=== PATIENT | male | born 1950 | race Caucasian/White ===

== ENCOUNTER → 2017-07-17 11:10 | Outpatient (CLI) | payer OTHER, MEDICARE, SELFPAY ==
[2017-07-19 18:02] LABS: PSA Post Prostatectomy 2.46 ng/mL
[2017-07-19 22:43] LABS: Albumin 4.1 g/dL (3.6-5.1); Sex Hormone Binding Globulin 30 nmol/L (22-77); Testosterone, Bioavailable 104.8 ng/dL (110.0-575.0); Testosterone, Total 385 ng/dL (250-1100); Testosterone,Free 55.7 pg/mL (46.0-224.0)
== END ==
PROVIDERS: Family Provider Family Medicine; PCP Family Medicine; Visit Provider Nurse Practitioner
DX: C61 Malignant neoplasm of prostate (principal)
CPT/HCPCS: 36415; 82040; 84153; 84270; 84403

== ENCOUNTER → 2017-09-25 09:53 | Outpatient (CLI) | payer MEDICARE, OTHER, SELFPAY ==
[2017-09-28 18:02] LABS: PSA Post Prostatectomy 1.64 ng/mL
[2017-09-28 21:09] LABS: Albumin 4.2 g/dL (3.6-5.1); Sex Hormone Binding Globulin 37 nmol/L (22-77); Testosterone, Bioavailable 65.7 ng/dL (110.0-575.0); Testosterone, Total 291 ng/dL (250-1100); Testosterone,Free 34.1 pg/mL (46.0-224.0)
== END ==
PROVIDERS: Family Provider Family Medicine; PCP Family Medicine; Visit Provider Nurse Practitioner
DX: C61 Malignant neoplasm of prostate (principal)
CPT/HCPCS: 36415; 82040; 84153; 84270; 84403

== ENCOUNTER → 2017-10-23 10:52 | Outpatient (CLI) | payer MEDICARE, OTHER, SELFPAY ==
[2017-10-26 08:56] LABS: PSA Post Prostatectomy 1.76 ng/mL
[2017-10-26 22:07] LABS: Testosterone Free 39.5 pg/mL (35.0-155.0); Testosterone Total 317 ng/dL (250-1100)
== END ==
PROVIDERS: PCP Family Medicine; Visit Provider Nurse Practitioner
DX: C61 Malignant neoplasm of prostate (principal)
CPT/HCPCS: 36415; 84153; 84402; 84403

== ENCOUNTER → 2017-12-06 07:32 | Outpatient (CLI) | payer MEDICARE, OTHER, SELFPAY ==
--- NOTE | 2017-12-06 | DI.US.S_ITS ---
PROCEDURE: US PERIPH VENOUS LOW EXTREM RT INDICATIONS: RIGHT LOWER EXTREMITY WEAKNESS/TINGLING TECHNIQUE: Real-time imaging, as well as color and pulse Doppler interrogation, were performed of the lower extremity deep veins from the inguinal ligament to the popliteal fossa. COMPARISON: None. FINDINGS: The deep veins are normally compressible, and free of intraluminal thrombus. Color and pulse Doppler demonstrate normal phasic intraluminal flow. There is normal augmentation response to distal compression maneuver. IMPRESSION: No DVT found right lower extremity. Dictated by: Lloyd Larson M.D. on 12/06/2017 at 8:42 Approved by: Lloyd Larson M.D. on 12/06/2017 at 8:42
== END ==
PROVIDERS: PCP Family Medicine; Visit Provider Internal Medicine Hematology & Oncology
DX: M62.81 Muscle weakness (generalized) (principal); R20.0 Anesthesia of skin
CPT/HCPCS: 93971

== ENCOUNTER → 2017-12-23 12:12 | Outpatient (CLI) | payer MEDICARE, OTHER, SELFPAY ==
[2017-12-27 17:33] LABS: PSA Post Prostatectomy 1.75 ng/mL
[2017-12-27 18:01] LABS: Testosterone Free 57.7 pg/mL (35.0-155.0); Testosterone Total 332 ng/dL (250-1100)
== END ==
PROVIDERS: Family Provider Registered Nurse; Visit Provider Nurse Practitioner
DX: C61 Malignant neoplasm of prostate (principal)
CPT/HCPCS: 36415; 84153; 84402; 84403

== ENCOUNTER → 2018-01-24 10:31 | Outpatient (CLI) | payer MEDICARE, OTHER, SELFPAY ==
[2018-01-26 14:20] LABS: PSA Post Prostatectomy 1.96 ng/mL
[2018-01-26 14:54] LABS: Testosterone, Free 1.06 ng/dL
== END ==
PROVIDERS: Family Provider Registered Nurse; Visit Provider Nurse Practitioner
DX: C61 Malignant neoplasm of prostate (principal)
CPT/HCPCS: 36415; 84153; 84402

== ENCOUNTER → 2018-03-17 10:33 | Outpatient (CLI) | payer MEDICARE, OTHER, SELFPAY ==
[2018-03-23 13:31] LABS: Testosterone Total 333
[2018-03-23 13:33] LABS: Testosterone Free 36.7
[2018-03-25 16:42] LABS: PSA Post Prostatectomy 3.17 ng/mL
== END ==
PROVIDERS: Visit Provider Nurse Practitioner
DX: C61 Malignant neoplasm of prostate (principal)
CPT/HCPCS: 36415; 84153; 84402; 84403

== ENCOUNTER → 2018-04-19 12:22 | Outpatient (CLI) | payer MEDICARE, OTHER, SELFPAY ==
[2018-04-22 16:59] LABS: PSA Post Prostatectomy 2.17 ng/mL
[2018-04-23 18:09] LABS: Testosterone Free 64.4 pg/mL (35.0-155.0); Testosterone Total 626 ng/dL (250-1100)
== END ==
PROVIDERS: Family Provider Registered Nurse; PCP Family Medicine; Visit Provider Nurse Practitioner
CPT/HCPCS: 36415; 84153; 84402; 84403

== ENCOUNTER → 2019-02-11 11:49 | Outpatient (CLI) | payer MEDICARE, OTHER, SELFPAY ==
[2019-02-14 10:59] LABS: PSA Post Prostatectomy 0.25 ng/mL
[2019-02-15 14:37] LABS: Testosterone Free 42.8 pg/mL (35.0-155.0); Testosterone Total 380 ng/dL (250-1100)
== END ==
PROVIDERS: Family Provider Internal Medicine; PCP Internal Medicine
DX: C61 Malignant neoplasm of prostate (principal)
CPT/HCPCS: 36415; 84153; 84402; 84403

== ENCOUNTER → 2019-05-03 14:51 | Outpatient (CLI) | payer MEDICARE, OTHER, SELFPAY ==
[2019-05-03 18:00] LABS: Prostate Specific Antigen 0.502 ng/mL (0.10-4.00)
[2019-05-08 01:21] LABS: Testosterone Free 42.8 pg/mL (35.0-155.0); Testosterone Total 371 ng/dL (250-1100)
== END ==
PROVIDERS: Family Provider Internal Medicine; PCP Internal Medicine; Referring Provider Nurse Practitioner; Visit Provider Nurse Practitioner
DX: C61 Malignant neoplasm of prostate (principal)
CPT/HCPCS: 36415; 84153; 84402; 84403

== ENCOUNTER → 2019-06-03 10:21 | Outpatient (CLI) | payer MEDICARE, OTHER, SELFPAY ==
[2019-06-04 07:16] LABS: PSA Ultrasensitive 0.859 ng/mL (0.000-4.000)
[2019-06-09 05:49] LABS: Percent Free Testosterone 1.94 % (1.50-4.20); Testosterone Free 7.65 ng/dL (5.00-21.00); Testosterone Total 394.5 ng/dL (264.0-916.0)
== END ==
PROVIDERS: Family Provider Internal Medicine; PCP Internal Medicine; Referring Provider Nurse Practitioner; Visit Provider Nurse Practitioner
DX: C61 Malignant neoplasm of prostate (principal)
CPT/HCPCS: 36415; 84153; 84402; 84403

== ENCOUNTER → 2019-07-05 12:35 | Outpatient (CLI) | payer MEDICARE, OTHER, SELFPAY ==
[2019-07-10 13:48] LABS: Percent Free Testosterone 1.28 % (1.50-4.20); Testosterone Free 3.97 ng/dL (5.00-21.00); Testosterone Total 310.2 ng/dL (264.0-916.0)
== END ==
PROVIDERS: Family Provider Internal Medicine; PCP Internal Medicine; Referring Provider Nurse Practitioner; Visit Provider Nurse Practitioner
DX: C61 Malignant neoplasm of prostate (principal)
CPT/HCPCS: 36415; 84153; 84402; 84403

== ENCOUNTER → 2019-09-07 08:37 | Outpatient (CLI) | payer MEDICARE, OTHER, SELFPAY ==
[2019-09-12 08:12] LABS: Percent Free Testosterone 1.46 % (1.50-4.20); Testosterone Free 5.31 ng/dL (5.00-21.00); Testosterone Total 363.5 ng/dL (264.0-916.0)
== END ==
PROVIDERS: Family Provider Internal Medicine; PCP Internal Medicine; Referring Provider Nurse Practitioner; Visit Provider Nurse Practitioner
DX: C61 Malignant neoplasm of prostate (principal)
CPT/HCPCS: 36415; 84153; 84402; 84403

== ENCOUNTER → 2019-10-10 10:16 | Outpatient (CLI) | payer MEDICARE, OTHER, SELFPAY ==
[2019-10-15 11:36] LABS: Percent Free Testosterone 1.27 % (1.50-4.20); Testosterone Free 3.76 ng/dL (5.00-21.00)
== END ==
PROVIDERS: Family Provider Internal Medicine; PCP Internal Medicine; Referring Provider Nurse Practitioner; Visit Provider Nurse Practitioner
DX: C61 Malignant neoplasm of prostate (principal)
CPT/HCPCS: 36415; 84153; 84402; 84403

== ENCOUNTER → 2019-11-08 10:12 | Outpatient (CLI) | payer MEDICARE, OTHER, SELFPAY ==
[2019-11-12 14:10] LABS: Percent Free Testosterone 2.65 % (1.50-4.20); Testosterone Free 9.09 ng/dL (5.00-21.00); Testosterone Total 343.1 ng/dL (264.0-916.0)
== END ==
PROVIDERS: Nurse Practitioner; Family Provider Internal Medicine; PCP Internal Medicine; Referring Provider Internal Medicine; Visit Provider Internal Medicine
DX: C61 Malignant neoplasm of prostate (principal)
CPT/HCPCS: 36415; 84153; 84402; 84403

== ENCOUNTER → 2019-12-12 11:18 | Outpatient (CLI) | payer MEDICARE, OTHER, SELFPAY ==
[2019-12-14 14:07] LABS: Testosterone, Free 7.2 pg/mL (6.6-18.1)
== END ==
PROVIDERS: Family Provider Internal Medicine; PCP Internal Medicine; Referring Provider Nurse Practitioner; Visit Provider Nurse Practitioner
DX: C61 Malignant neoplasm of prostate (principal)
CPT/HCPCS: 36415; 84153; 84402

== ENCOUNTER → 2020-01-11 09:02 | Outpatient (CLI) | payer MEDICARE, OTHER, SELFPAY ==
[2020-01-16 08:58] LABS: Percent Free Testosterone 3.22 % (1.50-4.20); Testosterone Free 14.83 ng/dL (5.00-21.00); Testosterone Total 460.7 ng/dL (264.0-916.0)
== END ==
PROVIDERS: Family Provider Internal Medicine; PCP Internal Medicine; Referring Provider Internal Medicine Hematology & Oncology; Visit Provider Internal Medicine Hematology & Oncology
DX: C61 Malignant neoplasm of prostate (principal)
CPT/HCPCS: 36415; 84153; 84402; 84403

== ENCOUNTER → 2020-01-23 09:58 | Outpatient (CLI) | payer MEDICARE, OTHER, SELFPAY ==
[2020-01-23 11:15] LABS: Alanine Aminotransferase 18 IU/L (<50); Albumin 4.3 g/dL (3.5-5.0); Albumin Globulin Ratio 1.5 (1.0-2.8); Alkaline Phosphatase 46 U/L (38-126); Aspartate Aminotransferase 30 IU/L (17-59); BUN Creatinine Ratio 15.5 (6-22); Bilirubin Total 0.9 mg/dL (0.2-1.3); Blood Urea Nitrogen 13 mg/dL (9-20); Calcium 9.4 mg/dL (8.4-10.2); Carbon Dioxide 34 mmol/L (22-32); Chloride 96 mmol/L (98-107); Cholesterol 159 mg/dL (140-199); Estimated Glomerular Filt Rate > 60.0 mL/min (>60); Globulin 2.8 g/dL (1.7-4.1); Glucose 99 mg/dL (80-110); HDL Cholesterol 59 mg/dL (40-60); HEMOLYSIS 20 (0-50); LDL Cholesterol Calculated 85 mg/dL (<100); Sodium 131 mmol/L (137-145); Total Protein 7.1 g/dL (6.3-8.2); Triglycerides 73 mg/dL (35-150)
== END ==
PROVIDERS: Family Provider Internal Medicine; PCP Internal Medicine; Referring Provider Internal Medicine; Visit Provider Internal Medicine
DX: E78.2 Mixed hyperlipidemia (principal); I10 Essential (primary) hypertension
CPT/HCPCS: 36415; 80053; 80061

== ENCOUNTER → 2020-02-06 10:57 | Outpatient (CLI) | payer MEDICARE, OTHER, SELFPAY ==
[2020-02-12 05:07] LABS: Percent Free Testosterone 3.51 % (1.50-4.20); Testosterone Total 453.1 ng/dL (264.0-916.0)
== END ==
PROVIDERS: Family Provider Internal Medicine; PCP Internal Medicine; Referring Provider Internal Medicine Hematology & Oncology; Visit Provider Internal Medicine Hematology & Oncology
DX: C61 Malignant neoplasm of prostate (principal)
CPT/HCPCS: 36415; 84153; 84402; 84403

== ENCOUNTER → 2020-03-12 12:01 | Outpatient (CLI) | payer MEDICARE, OTHER, SELFPAY ==
[2020-03-22 05:11] LABS: Percent Free Testosterone 2.97 % (1.50-4.20); Testosterone Total 383.9 ng/dL (264.0-916.0)
== END ==
PROVIDERS: Family Provider Internal Medicine; PCP Internal Medicine; Referring Provider Internal Medicine Hematology & Oncology; Visit Provider Internal Medicine Hematology & Oncology
DX: C61 Malignant neoplasm of prostate (principal)
CPT/HCPCS: 36415; 84153; 84402; 84403

== ENCOUNTER → 2020-04-11 14:12 | Outpatient (CLI) | payer MEDICARE, OTHER, SELFPAY ==
[2020-04-17 08:09] LABS: Percent Free Testosterone 2.46 % (1.50-4.20); Testosterone Free 8.44 ng/dL (5.00-21.00); Testosterone Total 343.1 ng/dL (264.0-916.0)
== END ==
PROVIDERS: Family Provider Internal Medicine; PCP Internal Medicine; Referring Provider Internal Medicine Hematology & Oncology; Visit Provider Internal Medicine Hematology & Oncology
DX: C61 Malignant neoplasm of prostate (principal)
CPT/HCPCS: 36415; 84153; 84402; 84403

== ENCOUNTER → 2020-05-11 09:56 | Outpatient (CLI) | payer MEDICARE, OTHER, SELFPAY ==
[2020-05-19 15:36] LABS: Percent Free Testosterone 2.21 % (1.50-4.20); Testosterone Free 6.78 ng/dL (5.00-21.00); Testosterone Total 306.8 ng/dL (264.0-916.0)
== END ==
PROVIDERS: Family Provider Internal Medicine; PCP Internal Medicine; Referring Provider Internal Medicine Hematology & Oncology; Visit Provider Internal Medicine Hematology & Oncology
DX: C61 Malignant neoplasm of prostate (principal)
CPT/HCPCS: 36415; 84153; 84402; 84403

== ENCOUNTER → 2020-06-11 10:16 | Outpatient (CLI) | payer MEDICARE, OTHER, SELFPAY ==
[2020-06-14 08:40] LABS: Testosterone,Free 9.6 pg/mL (6.6-18.1)
[2020-06-17 13:09] LABS: Testosterone, Total 357.4
== END ==
PROVIDERS: Family Provider Internal Medicine; PCP Internal Medicine; Referring Provider Internal Medicine Hematology & Oncology; Visit Provider Internal Medicine Hematology & Oncology
DX: C61 Malignant neoplasm of prostate (principal)
CPT/HCPCS: 36415; 84153; 84402; 84403

== ENCOUNTER → 2020-07-09 08:53 | Outpatient (CLI) | payer MEDICARE, OTHER, SELFPAY ==
[2020-07-13 19:37] LABS: Percent Free Testosterone 3.18 % (1.50-4.20); Testosterone Free 13.83 ng/dL (5.00-21.00); Testosterone Total 434.8 ng/dL (264.0-916.0)
== END ==
PROVIDERS: Family Provider Internal Medicine; PCP Internal Medicine; Referring Provider Internal Medicine Hematology & Oncology; Visit Provider Internal Medicine Hematology & Oncology
DX: C61 Malignant neoplasm of prostate (principal)
CPT/HCPCS: 36415; 84153; 84402; 84403

== ENCOUNTER → 2020-08-13 07:14 | Outpatient (CLI) | payer MEDICARE, OTHER, SELFPAY ==
[2020-08-13 08:57] LABS: Alanine Aminotransferase 21 IU/L (<50); Albumin 3.9 g/dL (3.5-5.0); Albumin Globulin Ratio 1.6 (1.0-2.8); Alkaline Phosphatase 44 U/L (38-126); Aspartate Aminotransferase 33 IU/L (17-59); BUN Creatinine Ratio 23.5 (6-22); Bilirubin Total 0.6 mg/dL (0.2-1.3); Blood Urea Nitrogen 20 mg/dL (9-20); Calcium 9.3 mg/dL (8.4-10.2); Carbon Dioxide 30 mmol/L (22-32); Chloride 103 mmol/L (98-107); Cholesterol 150 mg/dL (140-199); Estimated Glomerular Filt Rate > 60.0 mL/min (>60); Globulin 2.4 g/dL (1.7-4.1); Glucose 95 mg/dL (80-110); HDL Cholesterol 56 mg/dL (40-60); HEMOLYSIS < 15 (0-50); LDL Cholesterol Calculated 78 mg/dL (<100); Potassium 3.4 mmol/L (3.4-5.1); Sodium 140 mmol/L (137-145); Total Protein 6.3 g/dL (6.3-8.2); Triglycerides 80 mg/dL (35-150)
[2020-08-17 12:13] LABS: Percent Free Testosterone 2.16 % (1.50-4.20); Testosterone Free 0.41 ng/dL (5.00-21.00); Testosterone Total 19.1 ng/dL (264.0-916.0)
== END ==
PROVIDERS: Family Provider Internal Medicine; PCP Internal Medicine; Referring Provider Internal Medicine Hematology & Oncology; Visit Provider Internal Medicine Hematology & Oncology
DX: C61 Malignant neoplasm of prostate (principal); I10 Essential (primary) hypertension; E78.2 Mixed hyperlipidemia
CPT/HCPCS: 36415; 80053; 80061; 84153; 84402; 84403

== ENCOUNTER → 2020-09-12 13:22 | Outpatient (CLI) | payer MEDICARE, OTHER, SELFPAY ==
[2020-09-19 08:10] LABS: Percent Free Testosterone 2.38 % (1.50-4.20); Testosterone Total 8.4 ng/dL (264.0-916.0)
== END ==
PROVIDERS: Family Provider Internal Medicine; PCP Internal Medicine; Referring Provider Internal Medicine Hematology & Oncology; Visit Provider Internal Medicine Hematology & Oncology
DX: C61 Malignant neoplasm of prostate (principal)
CPT/HCPCS: 36415; 84153; 84402; 84403

== ENCOUNTER → 2020-10-10 08:51 | Outpatient (CLI) | payer MEDICARE, OTHER, SELFPAY ==
[2020-10-17 18:18] LABS: Percent Free Testosterone 2.38 % (1.50-4.20); Testosterone Free 0.34 ng/dL (5.00-21.00); Testosterone Total 14.1 ng/dL (264.0-916.0)
== END ==
PROVIDERS: Family Provider Internal Medicine; PCP Internal Medicine; Referring Provider Internal Medicine Hematology & Oncology; Visit Provider Internal Medicine Hematology & Oncology
DX: C61 Malignant neoplasm of prostate (principal)
CPT/HCPCS: 36415; 84153; 84402; 84403

== ENCOUNTER → 2020-11-13 09:35 | Outpatient (CLI) | payer MEDICARE, OTHER, SELFPAY ==
[2020-11-19 16:23] LABS: Testosterone,Free 3.2 pg/mL (6.6-18.1)
== END ==
PROVIDERS: Family Provider Internal Medicine; PCP Internal Medicine; Referring Provider Internal Medicine Hematology & Oncology; Visit Provider Internal Medicine Hematology & Oncology
DX: C61 Malignant neoplasm of prostate (principal)
CPT/HCPCS: 36415; 84153; 84402; 84403

== ENCOUNTER → 2020-12-12 09:46 | Outpatient (CLI) | payer MEDICARE, OTHER, SELFPAY ==
[2020-12-21 13:35] LABS: Percent Free Testosterone 2.15 % (1.50-4.20)
== END ==
PROVIDERS: Family Provider Internal Medicine; PCP Internal Medicine; Referring Provider Internal Medicine Hematology & Oncology; Visit Provider Internal Medicine Hematology & Oncology
DX: C61 Malignant neoplasm of prostate (principal)
CPT/HCPCS: 36415; 84153; 84402; 84403

== ENCOUNTER → 2020-12-25 08:09 | Outpatient (CLI) | payer MEDICARE, OTHER, SELFPAY ==
[2020-12-25 09:42] LABS: Alanine Aminotransferase 21 IU/L (<50); Albumin 4.2 g/dL (3.5-5.0); Albumin Globulin Ratio 1.8 (1.0-2.8); Alkaline Phosphatase 47 U/L (38-126); Aspartate Aminotransferase 35 IU/L (17-59); BUN Creatinine Ratio 14.1 (6-22); Bilirubin Total 0.8 mg/dL (0.2-1.3); Blood Urea Nitrogen 12 mg/dL (9-20); Calcium 9.6 mg/dL (8.4-10.2); Carbon Dioxide 33 mmol/L (22-32); Chloride 97 mmol/L (98-107); Cholesterol 161 mg/dL (140-199); Estimated Glomerular Filt Rate > 60.0 mL/min (>60); Globulin 2.3 g/dL (1.7-4.1); Glucose 93 mg/dL (80-110); HDL Cholesterol 62 mg/dL (40-60); HEMOLYSIS < 15 (0-50); LDL Cholesterol Calculated 80 mg/dL (<100); Potassium 3.9 mmol/L (3.4-5.1); Sodium 135 mmol/L (137-145); Total Protein 6.5 g/dL (6.3-8.2); Triglycerides 96 mg/dL (35-150)
== END ==
PROVIDERS: Family Provider Internal Medicine; PCP Internal Medicine; Referring Provider Internal Medicine; Visit Provider Internal Medicine
DX: E78.2 Mixed hyperlipidemia (principal); I10 Essential (primary) hypertension
CPT/HCPCS: 36415; 80053; 80061

== ENCOUNTER → 2021-01-11 11:15 | Outpatient (CLI) | payer MEDICARE, OTHER, SELFPAY ==
[2021-01-20 16:15] LABS: Percent Free Testosterone 1.33 % (1.50-4.20)
== END ==
PROVIDERS: Family Provider Internal Medicine; PCP Internal Medicine; Referring Provider Internal Medicine Hematology & Oncology; Visit Provider Internal Medicine Hematology & Oncology
DX: C61 Malignant neoplasm of prostate (principal); E78.2 Mixed hyperlipidemia; I10 Essential (primary) hypertension
CPT/HCPCS: 36415; 84153; 84402; 84403

== ENCOUNTER → 2021-02-18 08:46 | Outpatient (CLI) | payer MEDICARE, OTHER, SELFPAY ==
[2021-02-18 10:11] LABS: Prostate Specific Antigen 3.03 ng/mL (0.10-4.00)
[2021-02-25 11:17] LABS: Percent Free Testosterone 2.05 % (1.50-4.20); Testosterone Free 0.23 ng/dL (5.00-21.00)
== END ==
PROVIDERS: Family Provider Internal Medicine; PCP Internal Medicine; Referring Provider Internal Medicine Hematology & Oncology; Visit Provider Internal Medicine Hematology & Oncology
DX: C61 Malignant neoplasm of prostate (principal)
CPT/HCPCS: 36415; 84153; 84402; 84403

== ENCOUNTER → 2021-03-22 10:01 | Outpatient (CLI) | payer MEDICARE, OTHER, SELFPAY ==
[2021-03-22 11:30] LABS: Prostate Specific Antigen 3.38 ng/mL (0.10-4.00)
[2021-03-28 14:17] LABS: Percent Free Testosterone 2.31 % (1.50-4.20); Testosterone Free 0.43 ng/dL (5.00-21.00); Testosterone Total 18.5 ng/dL (264.0-916.0)
== END ==
PROVIDERS: Family Provider Internal Medicine; PCP Internal Medicine; Referring Provider Internal Medicine Hematology & Oncology; Visit Provider Internal Medicine Hematology & Oncology
DX: C61 Malignant neoplasm of prostate (principal)
CPT/HCPCS: 36415; 84153; 84402; 84403

== ENCOUNTER → 2021-04-15 14:35 | Outpatient (CLI) | payer MEDICARE, OTHER, SELFPAY ==
[2021-04-15 17:44] LABS: Prostate Specific Antigen 3.12 ng/mL (0.10-4.00)
[2021-04-23 07:13] LABS: Percent Free Testosterone 1.75 % (1.50-4.20)
== END ==
PROVIDERS: Family Provider Internal Medicine; PCP Internal Medicine; Referring Provider Internal Medicine Hematology & Oncology; Visit Provider Internal Medicine Hematology & Oncology
DX: C61 Malignant neoplasm of prostate (principal)
CPT/HCPCS: 36415; 84153; 84402; 84403

== ENCOUNTER → 2021-06-24 09:02 | Outpatient (CLI) | payer MEDICARE, OTHER, SELFPAY ==
[2021-06-24 11:05] LABS: Prostate Specific Antigen 3.26 ng/mL (0.10-4.00)
[2021-06-24 12:02] LABS: Alanine Aminotransferase 20 IU/L (<50); Albumin 4.1 g/dL (3.5-5.0); Albumin Globulin Ratio 1.7 (1.0-2.8); Alkaline Phosphatase 44 U/L (38-126); Aspartate Aminotransferase 30 IU/L (17-59); BUN Creatinine Ratio 22.1 (6-22); Bilirubin Total 0.4 mg/dL (0.2-1.3); Blood Urea Nitrogen 17 mg/dL (9-20); Calcium 9.2 mg/dL (8.4-10.2); Carbon Dioxide 29 mmol/L (22-32); Chloride 104 mmol/L (98-107); Cholesterol 168 mg/dL (140-199); Estimated Glomerular Filt Rate > 60 mL/min (>60); Globulin 2.4 g/dL (1.7-4.1); Glucose 98 mg/dL (80-110); HDL Cholesterol 55 mg/dL (40-60); HEMOLYSIS < 15 (0-50); LDL Cholesterol Calculated 92 mg/dL (<100); Potassium 3.7 mmol/L (3.4-5.1); Sodium 141 mmol/L (137-145); Total Protein 6.5 g/dL (6.3-8.2); Triglycerides 107 mg/dL (35-150)
[2021-07-01 11:41] LABS: Percent Free Testosterone 1.33 % (1.50-4.20); Testosterone Free 0.14 ng/dL (5.00-21.00); Testosterone Total 10.4 ng/dL (264.0-916.0)
== END ==
PROVIDERS: Family Provider Internal Medicine; PCP Internal Medicine; Referring Provider Internal Medicine Hematology & Oncology; Visit Provider Internal Medicine Hematology & Oncology
DX: E78.2 Mixed hyperlipidemia (principal); C61 Malignant neoplasm of prostate
CPT/HCPCS: 36415; 80053; 80061; 84153; 84402; 84403

== ENCOUNTER → 2021-07-23 12:41 | Outpatient (CLI) | payer MEDICARE, OTHER, SELFPAY ==
[2021-07-29 09:24] LABS: Percent Free Testosterone 1.75 % (1.50-4.20); Testosterone Free 0.21 ng/dL (5.00-21.00); Testosterone Total 12.1 ng/dL (264.0-916.0)
== END ==
PROVIDERS: Family Provider Internal Medicine; PCP Internal Medicine; Referring Provider Internal Medicine Hematology & Oncology; Visit Provider Internal Medicine Hematology & Oncology
DX: C61 Malignant neoplasm of prostate (principal)
CPT/HCPCS: 36415; 84153; 84402; 84403

== ENCOUNTER → 2021-08-18 12:36 | Outpatient (CLI) | payer MEDICARE, OTHER, SELFPAY ==
[2021-08-25 01:28] LABS: Percent Free Testosterone 1.82 % (1.50-4.20); Testosterone Free 0.21 ng/dL (5.00-21.00); Testosterone Total 11.3 ng/dL (264.0-916.0)
== END ==
PROVIDERS: Family Provider Internal Medicine; PCP Internal Medicine; Referring Provider Internal Medicine Hematology & Oncology; Visit Provider Internal Medicine Hematology & Oncology
DX: C61 Malignant neoplasm of prostate (principal)
CPT/HCPCS: 36415; 84153; 84402; 84403

== ENCOUNTER → 2021-09-18 13:14 | Outpatient (CLI) | payer MEDICARE, OTHER, SELFPAY ==
[2021-09-18 14:44] LABS: Prostate Specific Antigen 4.74 ng/mL (0.10-4.00)
[2021-09-25 08:35] LABS: Percent Free Testosterone 1.65 % (1.50-4.20); Testosterone Free 0.26 ng/dL (5.00-21.00); Testosterone Total 15.5 ng/dL (264.0-916.0)
== END ==
PROVIDERS: Family Provider Internal Medicine; PCP Internal Medicine; Referring Provider Internal Medicine Hematology & Oncology; Visit Provider Internal Medicine Hematology & Oncology
DX: C61 Malignant neoplasm of prostate (principal)
CPT/HCPCS: 36415; 84153; 84402; 84403

== ENCOUNTER → 2021-10-23 08:51 | Outpatient (CLI) | payer MEDICARE, OTHER, SELFPAY ==
[2021-10-23 12:19] LABS: Prostate Specific Antigen 4.89 ng/mL (0.10-4.00)
[2021-11-02 19:17] LABS: Percent Free Testosterone 2.69 % (1.50-4.20); Testosterone Free 0.58 ng/dL (5.00-21.00); Testosterone Total 21.5 ng/dL (264.0-916.0)
== END ==
PROVIDERS: Family Provider Internal Medicine; PCP Internal Medicine; Referring Provider Internal Medicine Hematology & Oncology; Visit Provider Internal Medicine Hematology & Oncology
DX: C61 Malignant neoplasm of prostate (principal)
CPT/HCPCS: 36415; 84153; 84402; 84403

== ENCOUNTER → 2021-11-25 11:35 | Outpatient (CLI) | payer MEDICARE, OTHER, SELFPAY ==
[2021-11-25 13:23] LABS: Prostate Specific Antigen 6.71 ng/mL (0.10-4.00)
[2021-12-07 18:21] LABS: Percent Free Testosterone 1.89 % (1.50-4.20)
== END ==
PROVIDERS: Family Provider Internal Medicine; PCP Internal Medicine; Referring Provider Internal Medicine Hematology & Oncology; Visit Provider Internal Medicine Hematology & Oncology
DX: C61 Malignant neoplasm of prostate (principal)
CPT/HCPCS: 36415; 84153; 84402; 84403

== ENCOUNTER → 2021-12-24 09:10 | Outpatient (CLI) | payer MEDICARE, OTHER, SELFPAY ==
[2021-12-24 10:07] LABS: Alanine Aminotransferase 22 IU/L (<50); Albumin 4.3 g/dL (3.5-5.0); Albumin Globulin Ratio 1.6 (1.0-2.8); Alkaline Phosphatase 52 U/L (38-126); Aspartate Aminotransferase 28 IU/L (17-59); BUN Creatinine Ratio 20.2 (6-22); Bilirubin Total 0.8 mg/dL (0.2-1.3); Blood Urea Nitrogen 18 mg/dL (9-20); Calcium 9.3 mg/dL (8.4-10.2); Carbon Dioxide 31 mmol/L (22-32); Chloride 100 mmol/L (98-107); Cholesterol 181 mg/dL (140-199); Estimated Glomerular Filt Rate > 60 mL/min (>60); Globulin 2.7 g/dL (1.7-4.1); Glucose 96 mg/dL (80-110); HDL Cholesterol 59 mg/dL (40-60); HEMOLYSIS < 15 (0-50); LDL Cholesterol Calculated 95 mg/dL (<100); Potassium 3.9 mmol/L (3.4-5.1); Sodium 137 mmol/L (137-145); Triglycerides 134 mg/dL (35-150)
[2021-12-24 10:23] LABS: Prostate Specific Antigen 6.69 ng/mL (0.10-4.00)
[2021-12-29 06:43] LABS: Percent Free Testosterone 2.33 % (1.50-4.20); Testosterone Free 0.42 ng/dL (5.00-21.00); Testosterone Total 18.1 ng/dL (264.0-916.0)
== END ==
PROVIDERS: Family Provider Internal Medicine; PCP Internal Medicine; Referring Provider Internal Medicine Hematology & Oncology; Visit Provider Internal Medicine Hematology & Oncology
DX: E78.2 Mixed hyperlipidemia (principal); C61 Malignant neoplasm of prostate; I10 Essential (primary) hypertension
CPT/HCPCS: 36415; 80053; 80061; 84153; 84402; 84403

== ENCOUNTER → 2022-01-20 14:04 | Outpatient (CLI) | payer MEDICARE, OTHER, SELFPAY ==
[2022-01-20 15:42] LABS: Prostate Specific Antigen 7.88 ng/mL (0.10-4.00)
[2022-01-31 13:39] LABS: Percent Free Testosterone 1.86 % (1.50-4.20); Testosterone Free 0.28 ng/dL (5.00-21.00)
== END ==
PROVIDERS: Family Provider Internal Medicine; PCP Internal Medicine; Referring Provider Internal Medicine Hematology & Oncology; Visit Provider Internal Medicine Hematology & Oncology
DX: C61 Malignant neoplasm of prostate (principal)
CPT/HCPCS: 36415; 84153; 84402; 84403

== ENCOUNTER → 2022-02-23 11:45 | Outpatient (CLI) | payer MEDICARE, OTHER, SELFPAY | PROVIDERS: Family Provider Internal Medicine; PCP Internal Medicine; Referring Provider Internal Medicine Hematology & Oncology; Visit Provider Internal Medicine Hematology & Oncology | DX: C61 Malignant neoplasm of prostate (principal) | CPT/HCPCS: 36415; 84153; 84402; 84403 ==

== ENCOUNTER → 2022-03-24 14:48 | Outpatient (CLI) | payer MEDICARE, OTHER, SELFPAY ==
[2022-03-24 15:47] LABS: Prostate Specific Antigen 7.73 ng/mL (0.10-4.00)
[2022-03-31 22:48] LABS: Percent Free Testosterone 1.76 % (1.50-4.20); Testosterone Free 0.15 ng/dL (5.00-21.00); Testosterone Total 8.7 ng/dL (264.0-916.0)
== END ==
PROVIDERS: Family Provider Internal Medicine; PCP Internal Medicine; Referring Provider Internal Medicine Hematology & Oncology; Visit Provider Internal Medicine Hematology & Oncology
DX: C61 Malignant neoplasm of prostate (principal)
CPT/HCPCS: 36415; 84153; 84402; 84403

== ENCOUNTER → 2022-04-22 12:38 | Outpatient (CLI) | payer MEDICARE, OTHER, SELFPAY ==
[2022-04-22 14:46] LABS: Prostate Specific Antigen 8.05 ng/mL (0.10-4.00)
[2022-05-03 15:36] LABS: Percent Free Testosterone 1.32 % (1.50-4.20); Testosterone Free 0.02 ng/dL (5.00-21.00); Testosterone Total 1.2 ng/dL (264.0-916.0)
== END ==
PROVIDERS: Family Provider Internal Medicine; PCP Internal Medicine; Referring Provider Internal Medicine Hematology & Oncology; Visit Provider Internal Medicine Hematology & Oncology
DX: C61 Malignant neoplasm of prostate (principal)
CPT/HCPCS: 36415; 84153; 84402; 84403

== ENCOUNTER → 2022-05-01 13:23 | Outpatient (CLI) | payer MEDICARE, OTHER, SELFPAY ==
[2022-05-01 14:52] LABS: Alanine Aminotransferase 22 IU/L (<50); Albumin 4.2 g/dL (3.5-5.0); Albumin Globulin Ratio 1.8 (1.0-2.8); Alkaline Phosphatase 51 U/L (38-126); Aspartate Aminotransferase 27 IU/L (17-59); BUN Creatinine Ratio 19.7 (6-22); Bilirubin Total 0.6 mg/dL (0.2-1.3); Blood Urea Nitrogen 15 mg/dL (9-20); Calcium 8.9 mg/dL (8.4-10.2); Carbon Dioxide 30 mmol/L (22-32); Chloride 97 mmol/L (98-107); Estimated Glomerular Filt Rate > 60 mL/min (>60); Globulin 2.3 g/dL (1.7-4.1); Glucose 91 mg/dL (80-110); HEMOLYSIS < 15 (0-50); Potassium 3.7 mmol/L (3.4-5.1); Sodium 134 mmol/L (137-145); Total Protein 6.5 g/dL (6.3-8.2)
== END ==
PROVIDERS: Family Provider Internal Medicine; PCP Internal Medicine; Referring Provider Internal Medicine Hematology & Oncology; Visit Provider Internal Medicine Hematology & Oncology
DX: C61 Malignant neoplasm of prostate (principal)
CPT/HCPCS: 36415; 80053

== ENCOUNTER → 2022-05-15 08:28 | Outpatient (CLI) | payer MEDICARE, OTHER, SELFPAY ==
[2022-05-15 09:19] LABS: Add Manual Diff / Slide Review NO; Basophils Absolute Auto 0 /uL (0-100); Basophils Percent Auto 0.5 % (0-2); Eosinophils Absolute Auto 100 /uL (0-450); Eosinophils Percent Auto 1.2 % (2-4); Hematocrit 36.9 % (41-53); Hemoglobin 12.9 g/dL (13.5-17.5); Lymphocytes Absolute Auto 3900 /uL (1100-4500); Lymphocytes Percent Auto 46.1 % (25-40); Mean Corpuscular Hemoglobin 33.5 PG (26-34); Mean Corpuscular Volume 95.6 fL (80-100); Monocytes Absolute Auto 700 /uL (0-900); Monocytes Percent Auto 8.1 % (3-14); Neutrophils Absolute Auto 3800 /uL (1500-7000); Neutrophils Percent Auto 44.1 % (50-75); Platelet Count 178 X10^3/uL (150-400); Red Blood Cell Count 3.86 X10^6/uL (4.5-5.9); Red Cell Distribution Width 13.4 % (11.6-14.8); White Blood Cell Count 8.5 X10^3/uL (4.5-11.0)
[2022-05-15 09:39] LABS: Alanine Aminotransferase 21 IU/L (<50); Albumin Globulin Ratio 1.6 (1.0-2.8); Alkaline Phosphatase 50 U/L (38-126); Aspartate Aminotransferase 25 IU/L (17-59); BUN Creatinine Ratio 17.3 (6-22); Bilirubin Total 0.6 mg/dL (0.2-1.3); Blood Urea Nitrogen 14 mg/dL (9-20); Carbon Dioxide 36 mmol/L (22-32); Chloride 96 mmol/L (98-107); Estimated Glomerular Filt Rate > 60 mL/min (>60); Globulin 2.5 g/dL (1.7-4.1); Glucose 95 mg/dL (80-110); HEMOLYSIS < 15 (0-50); Potassium 4.2 mmol/L (3.4-5.1); Sodium 137 mmol/L (137-145); Total Protein 6.5 g/dL (6.3-8.2)
[2022-05-15 10:03] LABS: Prostate Specific Antigen 5.54 ng/mL (0.10-4.00)
== END ==
PROVIDERS: Family Provider Internal Medicine; PCP Internal Medicine; Referring Provider Internal Medicine Hematology & Oncology; Visit Provider Internal Medicine Hematology & Oncology
DX: C61 Malignant neoplasm of prostate (principal)
CPT/HCPCS: 36415; 80053; 84153; 85025

== ENCOUNTER → 2022-05-29 13:48 | Outpatient (CLI) | payer MEDICARE, OTHER, SELFPAY ==
[2022-05-29 15:57] LABS: Alanine Aminotransferase 23 IU/L (<50); Albumin 4.3 g/dL (3.5-5.0); Albumin Globulin Ratio 1.5 (1.0-2.8); Alkaline Phosphatase 49 U/L (38-126); Aspartate Aminotransferase 26 IU/L (17-59); BUN Creatinine Ratio 23.2 (6-22); Bilirubin Total 0.5 mg/dL (0.2-1.3); Blood Urea Nitrogen 22 mg/dL (9-20); Calcium 9.3 mg/dL (8.4-10.2); Carbon Dioxide 35 mmol/L (22-32); Chloride 94 mmol/L (98-107); Estimated Glomerular Filt Rate > 60 mL/min (>60); Globulin 2.9 g/dL (1.7-4.1); Glucose 117 mg/dL (80-110); HEMOLYSIS < 15 (0-50); Potassium 3.5 mmol/L (3.4-5.1); Sodium 137 mmol/L (137-145); Total Protein 7.2 g/dL (6.3-8.2)
== END ==
PROVIDERS: Family Provider Internal Medicine; PCP Internal Medicine; Referring Provider Internal Medicine Hematology & Oncology; Visit Provider Internal Medicine Hematology & Oncology
DX: C61 Malignant neoplasm of prostate (principal)
CPT/HCPCS: 36415; 80053

== ENCOUNTER → 2022-06-12 13:50 | Outpatient (CLI) | payer MEDICARE, OTHER, SELFPAY ==
[2022-06-12 14:42] LABS: Alanine Aminotransferase 26 IU/L (<50); Albumin Globulin Ratio 1.5 (1.0-2.8); Alkaline Phosphatase 44 U/L (38-126); Aspartate Aminotransferase 26 IU/L (17-59); BUN Creatinine Ratio 22.1 (6-22); Bilirubin Total 0.5 mg/dL (0.2-1.3); Blood Urea Nitrogen 17 mg/dL (9-20); Calcium 9.2 mg/dL (8.4-10.2); Carbon Dioxide 33 mmol/L (22-32); Chloride 92 mmol/L (98-107); Estimated Glomerular Filt Rate > 60 mL/min (>60); Globulin 2.6 g/dL (1.7-4.1); Glucose 107 mg/dL (80-110); HEMOLYSIS < 15 (0-50); Potassium 3.4 mmol/L (3.4-5.1); Sodium 132 mmol/L (137-145); Total Protein 6.6 g/dL (6.3-8.2)
== END ==
PROVIDERS: Family Provider Internal Medicine; PCP Internal Medicine; Referring Provider Internal Medicine Hematology & Oncology; Visit Provider Internal Medicine Hematology & Oncology
DX: C61 Malignant neoplasm of prostate (principal)
CPT/HCPCS: 36415; 80053

== ENCOUNTER → 2022-06-24 13:04 | Outpatient (CLI) | payer MEDICARE, OTHER, SELFPAY ==
[2022-06-24 14:47] LABS: Alanine Aminotransferase 28 IU/L (<50); Albumin 4.2 g/dL (3.5-5.0); Albumin Globulin Ratio 1.6 (1.0-2.8); Alkaline Phosphatase 53 U/L (38-126); Aspartate Aminotransferase 29 IU/L (17-59); BUN Creatinine Ratio 22.1 (6-22); Bilirubin Total 0.7 mg/dL (0.2-1.3); Blood Urea Nitrogen 17 mg/dL (9-20); Calcium 9.4 mg/dL (8.4-10.2); Carbon Dioxide 31 mmol/L (22-32); Chloride 94 mmol/L (98-107); Estimated Glomerular Filt Rate > 60 mL/min (>60); Globulin 2.6 g/dL (1.7-4.1); Glucose 101 mg/dL (80-110); HEMOLYSIS < 15 (0-50); Potassium 3.3 mmol/L (3.4-5.1); Sodium 133 mmol/L (137-145); Total Protein 6.8 g/dL (6.3-8.2)
[2022-06-24 15:12] LABS: Prostate Specific Antigen 2.54 ng/mL (0.10-4.00)
[2022-07-02 09:05] LABS: Percent Free Testosterone 1.06 % (1.50-4.20); Testosterone Free <.03 ng/dL (5.00-21.00); Testosterone Total <2.5 ng/dL (264.0-916.0)
== END ==
PROVIDERS: Family Provider Internal Medicine; PCP Internal Medicine; Referring Provider Internal Medicine Hematology & Oncology; Visit Provider Internal Medicine Hematology & Oncology
DX: C61 Malignant neoplasm of prostate (principal)
CPT/HCPCS: 36415; 80053; 84153; 84402; 84403

== ENCOUNTER → 2022-06-30 09:57 | Outpatient (CLI) | payer MEDICARE, OTHER, SELFPAY ==
[2022-06-30 11:51] LABS: Alanine Aminotransferase 24 IU/L (<50); Alkaline Phosphatase 49 U/L (38-126); Aspartate Aminotransferase 25 IU/L (17-59); BUN Creatinine Ratio 18.7 (6-22); Blood Urea Nitrogen 17 mg/dL (9-20); Calcium 9.2 mg/dL (8.4-10.2); Carbon Dioxide 31 mmol/L (22-32); Chloride 99 mmol/L (98-107); Cholesterol 167 mg/dL (140-199); Estimated Glomerular Filt Rate > 60 mL/min (>60); Glucose 85 mg/dL (80-110); HDL Cholesterol 63 mg/dL (40-60); HEMOLYSIS < 15 (0-50); LDL Cholesterol Calculated 77 mg/dL (<100); Potassium 3.4 mmol/L (3.4-5.1); Sodium 135 mmol/L (137-145); Triglycerides 134 mg/dL (35-150)
== END ==
PROVIDERS: Family Provider Internal Medicine; PCP Internal Medicine; Referring Provider Internal Medicine; Visit Provider Internal Medicine
DX: E78.2 Mixed hyperlipidemia (principal); I10 Essential (primary) hypertension
CPT/HCPCS: 36415; 80053; 80061

== ENCOUNTER → 2022-07-10 13:31 | Outpatient (CLI) | payer MEDICARE, OTHER, SELFPAY ==
[2022-07-10 14:54] LABS: Alanine Aminotransferase 25 IU/L (<50); Albumin 4.1 g/dL (3.5-5.0); Albumin Globulin Ratio 1.7 (1.0-2.8); Alkaline Phosphatase 48 U/L (38-126); Aspartate Aminotransferase 29 IU/L (17-59); BUN Creatinine Ratio 20.6 (6-22); Bilirubin Total 0.6 mg/dL (0.2-1.3); Blood Urea Nitrogen 20 mg/dL (9-20); Calcium 9.3 mg/dL (8.4-10.2); Carbon Dioxide 28 mmol/L (22-32); Chloride 100 mmol/L (98-107); Estimated Glomerular Filt Rate > 60 mL/min (>60); Globulin 2.4 g/dL (1.7-4.1); Glucose 102 mg/dL (80-110); HEMOLYSIS < 15 (0-50); Potassium 3.5 mmol/L (3.4-5.1); Sodium 136 mmol/L (137-145); Total Protein 6.5 g/dL (6.3-8.2)
== END ==
PROVIDERS: Family Provider Internal Medicine; PCP Internal Medicine; Referring Provider Internal Medicine Hematology & Oncology; Visit Provider Internal Medicine Hematology & Oncology
DX: C61 Malignant neoplasm of prostate (principal)
CPT/HCPCS: 36415; 80053

== ENCOUNTER → 2022-07-24 13:41 | Outpatient (CLI) | payer MEDICARE, OTHER, SELFPAY ==
[2022-07-24 14:45] LABS: HEMOLYSIS < 15 (0-50)
[2022-07-24 14:54] LABS: Alanine Aminotransferase 28 IU/L (<50); Albumin Globulin Ratio 1.7 (1.0-2.8); Alkaline Phosphatase 49 U/L (38-126); Aspartate Aminotransferase 30 IU/L (17-59); Bilirubin Total 0.5 mg/dL (0.2-1.3); Blood Urea Nitrogen 16 mg/dL (9-20); Carbon Dioxide 33 mmol/L (22-32); Chloride 96 mmol/L (98-107); Estimated Glomerular Filt Rate > 60 mL/min (>60); Globulin 2.3 g/dL (1.7-4.1); Glucose 127 mg/dL (80-110); Potassium 3.8 mmol/L (3.4-5.1); Sodium 133 mmol/L (137-145); Total Protein 6.3 g/dL (6.3-8.2)
[2022-07-24 15:25] LABS: Prostate Specific Antigen 1.52 ng/mL (0.10-4.00)
[2022-07-31 07:19] LABS: Percent Free Testosterone 1.32 % (1.50-4.20); Testosterone Free <.03 ng/dL (5.00-21.00); Testosterone Total <2.5 ng/dL (264.0-916.0)
== END ==
PROVIDERS: Family Provider Internal Medicine; PCP Internal Medicine; Referring Provider Internal Medicine Hematology & Oncology; Visit Provider Internal Medicine Hematology & Oncology
DX: C61 Malignant neoplasm of prostate (principal)
CPT/HCPCS: 36415; 80053; 84153; 84402; 84403

== ENCOUNTER → 2022-08-21 15:22 | Outpatient (CLI) | payer MEDICARE, OTHER, SELFPAY ==
[2022-08-21 16:18] LABS: Alanine Aminotransferase 23 IU/L (<50); Albumin 4.3 g/dL (3.5-5.0); Albumin Globulin Ratio 1.7 (1.0-2.8); Alkaline Phosphatase 55 U/L (38-126); Aspartate Aminotransferase 26 IU/L (17-59); BUN Creatinine Ratio 26.2 (6-22); Bilirubin Total 0.6 mg/dL (0.2-1.3); Blood Urea Nitrogen 22 mg/dL (9-20); Calcium 9.8 mg/dL (8.4-10.2); Carbon Dioxide 33 mmol/L (22-32); Chloride 99 mmol/L (98-107); Estimated Glomerular Filt Rate > 60 mL/min (>60); Globulin 2.5 g/dL (1.7-4.1); Glucose 116 mg/dL (80-110); HEMOLYSIS < 15 (0-50); Potassium 3.6 mmol/L (3.4-5.1); Sodium 137 mmol/L (137-145); Total Protein 6.8 g/dL (6.3-8.2)
[2022-08-21 16:48] LABS: Prostate Specific Antigen 1.16 ng/mL (0.10-4.00)
[2022-08-26 13:09] LABS: Percent Free Testosterone 1.85 % (1.50-4.20); Testosterone Free <.05 ng/dL (5.00-21.00); Testosterone Total <2.5 ng/dL (264.0-916.0)
== END ==
PROVIDERS: Family Provider Internal Medicine; PCP Internal Medicine; Referring Provider Internal Medicine Hematology & Oncology; Visit Provider Internal Medicine Hematology & Oncology
DX: C61 Malignant neoplasm of prostate (principal)
CPT/HCPCS: 36415; 80053; 84153; 84402; 84403

== ENCOUNTER → 2022-10-02 11:47 | Outpatient (CLI) | payer MEDICARE, OTHER, SELFPAY ==
[2022-10-02 12:28] LABS: Alanine Aminotransferase 22 IU/L (<50); Albumin Globulin Ratio 1.7 (1.0-2.8); Alkaline Phosphatase 46 U/L (38-126); Aspartate Aminotransferase 28 IU/L (17-59); BUN Creatinine Ratio 19.8 (6-22); Bilirubin Total 0.7 mg/dL (0.2-1.3); Blood Urea Nitrogen 16 mg/dL (9-20); Calcium 9.1 mg/dL (8.4-10.2); Carbon Dioxide 29 mmol/L (22-32); Chloride 99 mmol/L (98-107); Cholesterol 171 mg/dL (140-199); Estimated Glomerular Filt Rate > 60 mL/min (>60); Globulin 2.4 g/dL (1.7-4.1); Glucose 123 mg/dL (80-110); HDL Cholesterol 60 mg/dL (40-60); HEMOLYSIS < 15 (0-50); LDL Cholesterol Calculated 74 mg/dL (<100); Potassium 3.5 mmol/L (3.4-5.1); Sodium 134 mmol/L (137-145); Total Protein 6.4 g/dL (6.3-8.2); Triglycerides 186 mg/dL (35-150)
[2022-10-02 12:59] LABS: Prostate Specific Antigen 0.646 ng/mL (0.10-4.00)
[2022-10-11 19:07] LABS: Percent Free Testosterone 2.11 % (1.50-4.20); Testosterone Free <.05 ng/dL (5.00-21.00); Testosterone Total <2.5 ng/dL (264.0-916.0)
== END ==
PROVIDERS: Family Provider Internal Medicine; PCP Internal Medicine; Referring Provider Internal Medicine Hematology & Oncology; Visit Provider Internal Medicine Hematology & Oncology
DX: I10 Essential (primary) hypertension (principal); C61 Malignant neoplasm of prostate; E78.5 Hyperlipidemia, unspecified
CPT/HCPCS: 36415; 80053; 80061; 84153; 84402; 84403

== ENCOUNTER → 2022-10-31 11:07 | Outpatient (CLI) | payer MEDICARE, OTHER, SELFPAY ==
[2022-10-31 12:25] LABS: Add Manual Diff / Slide Review NO; Basophils Absolute Auto 0 /uL (0-100); Basophils Percent Auto 0.5 % (0-2); Eosinophils Absolute Auto 100 /uL (0-450); Eosinophils Percent Auto 0.8 % (2-4); Hematocrit 37.2 % (41-53); Lymphocytes Absolute Auto 2600 /uL (1100-4500); Mean Corpuscular HGB Conc 34.9 % (30-36); Mean Corpuscular Hemoglobin 33.9 PG (26-34); Monocytes Absolute Auto 1000 /uL (0-900); Monocytes Percent Auto 10.7 % (3-14); Neutrophils Absolute Auto 5600 /uL (1500-7000); Platelet Count 203 X10^3/uL (150-400); Red Blood Cell Count 3.83 X10^6/uL (4.5-5.9); Red Cell Distribution Width 13.8 % (11.6-14.8); White Blood Cell Count 9.3 X10^3/uL (4.5-11.0)
[2022-10-31 12:40] LABS: Alanine Aminotransferase 26 IU/L (<50); Albumin 4.3 g/dL (3.5-5.0); Albumin Globulin Ratio 1.7 (1.0-2.8); Alkaline Phosphatase 49 U/L (38-126); Aspartate Aminotransferase 29 IU/L (17-59); BUN Creatinine Ratio 19.7 (6-22); Bilirubin Total 0.5 mg/dL (0.2-1.3); Blood Urea Nitrogen 15 mg/dL (9-20); Calcium 9.8 mg/dL (8.4-10.2); Carbon Dioxide 33 mmol/L (22-32); Chloride 95 mmol/L (98-107); Estimated Glomerular Filt Rate > 60 mL/min (>60); Globulin 2.6 g/dL (1.7-4.1); Glucose 85 mg/dL (80-110); HEMOLYSIS < 15 (0-50); Potassium 4.1 mmol/L (3.4-5.1); Sodium 134 mmol/L (137-145); Total Protein 6.9 g/dL (6.3-8.2)
[2022-10-31 13:10] LABS: Prostate Specific Antigen 0.347 ng/mL (0.10-4.00)
[2022-11-07 15:36] LABS: Percent Free Testosterone 1.75 % (1.50-4.20); Testosterone Free 0.06 ng/dL (5.00-21.00); Testosterone Total 3.6 ng/dL (264.0-916.0)
== END ==
PROVIDERS: Family Provider Internal Medicine; PCP Internal Medicine; Referring Provider Internal Medicine Hematology & Oncology; Visit Provider Internal Medicine Hematology & Oncology
DX: C61 Malignant neoplasm of prostate (principal)
CPT/HCPCS: 36415; 80053; 84153; 84402; 84403; 85025

== ENCOUNTER → 2022-12-02 09:49 | Outpatient (CLI) | payer MEDICARE, OTHER, SELFPAY ==
[2022-12-02 11:55] LABS: Prostate Specific Antigen 0.334 ng/mL (0.10-4.00)
[2022-12-09 21:21] LABS: Percent Free Testosterone 1.78 % (1.50-4.20); Testosterone Free <.04 ng/dL (5.00-21.00); Testosterone Total <2.5 ng/dL (264.0-916.0)
== END ==
PROVIDERS: Family Provider Internal Medicine; PCP Internal Medicine; Referring Provider Internal Medicine Hematology & Oncology; Visit Provider Internal Medicine Hematology & Oncology
DX: C61 Malignant neoplasm of prostate (principal)
CPT/HCPCS: 36415; 84153; 84402; 84403

== ENCOUNTER → 2023-01-01 10:56 | Outpatient (CLI) | payer MEDICARE, OTHER, SELFPAY ==
[2023-01-01 12:52] LABS: Prostate Specific Antigen 0.219 ng/mL (0.10-4.00)
[2023-01-08 08:10] LABS: Percent Free Testosterone 1.56 % (1.50-4.20); Testosterone Free <.04 ng/dL (5.00-21.00); Testosterone Total <2.5 ng/dL (264.0-916.0)
== END ==
PROVIDERS: Family Provider Internal Medicine; PCP Internal Medicine; Referring Provider Internal Medicine Hematology & Oncology; Visit Provider Internal Medicine Hematology & Oncology
DX: C61 Malignant neoplasm of prostate (principal)
CPT/HCPCS: 36415; 84153; 84402; 84403

== ENCOUNTER → 2023-02-02 11:27 | Outpatient (CLI) | payer MEDICARE, OTHER, SELFPAY ==
[2023-02-02 13:01] LABS: Alanine Aminotransferase 23 IU/L (<50); Albumin 3.9 g/dL (3.5-5.0); Albumin Globulin Ratio 1.6 (1.0-2.8); Alkaline Phosphatase 46 U/L (38-126); Aspartate Aminotransferase 28 IU/L (17-59); BUN Creatinine Ratio 18.8 (6-22); Bilirubin Total 0.6 mg/dL (0.2-1.3); Blood Urea Nitrogen 16 mg/dL (9-20); Calcium 9.6 mg/dL (8.4-10.2); Carbon Dioxide 32 mmol/L (22-32); Chloride 98 mmol/L (98-107); Estimated Glomerular Filt Rate > 60 mL/min (>60); Globulin 2.4 g/dL (1.7-4.1); Glucose 118 mg/dL (80-110); HEMOLYSIS < 15 (0-50); Potassium 3.6 mmol/L (3.4-5.1); Sodium 135 mmol/L (137-145); Total Protein 6.3 g/dL (6.3-8.2)
[2023-02-02 13:27] LABS: Prostate Specific Antigen 0.185 ng/mL (0.10-4.00)
[2023-02-10 09:32] LABS: Percent Free Testosterone 1.53 % (1.50-4.20); Testosterone Free <.04 ng/dL (5.00-21.00); Testosterone Total <2.5 ng/dL (264.0-916.0)
== END ==
PROVIDERS: Family Provider Internal Medicine; PCP Internal Medicine; Referring Provider Internal Medicine Hematology & Oncology; Visit Provider Internal Medicine Hematology & Oncology
DX: C61 Malignant neoplasm of prostate (principal)
CPT/HCPCS: 36415; 80053; 84153; 84402; 84403

== ENCOUNTER → 2023-03-09 14:42 | Outpatient (CLI) | payer MEDICARE, OTHER, SELFPAY ==
[2023-03-09 15:33] LABS: Alanine Aminotransferase 24 IU/L (<50); Albumin 4.1 g/dL (3.5-5.0); Albumin Globulin Ratio 1.6 (1.0-2.8); Alkaline Phosphatase 47 U/L (38-126); Aspartate Aminotransferase 31 IU/L (17-59); BUN Creatinine Ratio 27.5 (6-22); Bilirubin Total 0.8 mg/dL (0.2-1.3); Blood Urea Nitrogen 22 mg/dL (9-20); Calcium 9.7 mg/dL (8.4-10.2); Carbon Dioxide 29 mmol/L (22-32); Chloride 97 mmol/L (98-107); Estimated Glomerular Filt Rate > 60 mL/min (>60); Globulin 2.5 g/dL (1.7-4.1); Glucose 108 mg/dL (80-110); HEMOLYSIS < 15 (0-50); Potassium 3.8 mmol/L (3.4-5.1); Sodium 133 mmol/L (137-145); Total Protein 6.6 g/dL (6.3-8.2)
[2023-03-20 10:42] LABS: Percent Free Testosterone 2.41 % (1.50-4.20); Testosterone Free <.06 ng/dL (5.00-21.00); Testosterone Total <2.5 ng/dL (264.0-916.0)
== END ==
LOC: LAB 14:45
PROVIDERS: Family Provider Internal Medicine; PCP Internal Medicine Hematology & Oncology; Referring Provider Internal Medicine Hematology & Oncology; Visit Provider Internal Medicine Hematology & Oncology
DX: C61 Malignant neoplasm of prostate (principal)
CPT/HCPCS: 36415; 80053; 84153; 84402; 84403

== ENCOUNTER → 2023-05-06 13:10 | Outpatient (CLI) | payer MEDICARE, OTHER, SELFPAY ==
[2023-05-06 15:54] LABS: Alanine Aminotransferase 20 IU/L (<50); Albumin 4.1 g/dL (3.5-5.0); Albumin Globulin Ratio 1.6 (1.0-2.8); Alkaline Phosphatase 47 U/L (38-126); Aspartate Aminotransferase 27 IU/L (17-59); BUN Creatinine Ratio 19.8 (6-22); Bilirubin Total 0.6 mg/dL (0.2-1.3); Blood Urea Nitrogen 16 mg/dL (9-20); Calcium 9.4 mg/dL (8.4-10.2); Carbon Dioxide 33 mmol/L (22-32); Chloride 102 mmol/L (98-107); Estimated Glomerular Filt Rate > 60 mL/min (>60); Globulin 2.6 g/dL (1.7-4.1); Glucose 90 mg/dL (80-110); HEMOLYSIS < 15 (0-50); Potassium 3.9 mmol/L (3.4-5.1); Sodium 137 mmol/L (137-145); Total Protein 6.7 g/dL (6.3-8.2)
[2023-05-06 16:22] LABS: Prostate Specific Antigen 0.261 ng/mL (0.10-4.00)
[2023-05-15 17:40] LABS: Percent Free Testosterone 2.38 % (1.50-4.20); Testosterone Free <.06 ng/dL (5.00-21.00); Testosterone Total <2.5 ng/dL (264.0-916.0)
== END ==
LOC: LAB 13:13
PROVIDERS: Family Provider Internal Medicine; PCP Internal Medicine Hematology & Oncology; Referring Provider Internal Medicine Hematology & Oncology; Visit Provider Internal Medicine Hematology & Oncology
DX: C61 Malignant neoplasm of prostate (principal)
CPT/HCPCS: 36415; 80053; 84153; 84402; 84403

== ENCOUNTER → 2023-06-03 08:25 | Outpatient (CLI) | payer MEDICARE, OTHER, SELFPAY ==
[2023-06-03 10:49] LABS: Prostate Specific Antigen 0.277 ng/mL (0.10-4.00)
[2023-06-08 10:09] LABS: Percent Free Testosterone 1.48 % (1.50-4.20); Testosterone Free <.04 ng/dL (5.00-21.00); Testosterone Total <2.5 ng/dL (264.0-916.0)
== END ==
PROVIDERS: Family Provider Internal Medicine; PCP Internal Medicine Hematology & Oncology; Referring Provider Internal Medicine Hematology & Oncology; Visit Provider Internal Medicine Hematology & Oncology
DX: C61 Malignant neoplasm of prostate (principal)
CPT/HCPCS: 36415; 84153; 84402; 84403

== ENCOUNTER → 2023-07-01 09:53 | Outpatient (CLI) | payer MEDICARE, OTHER, SELFPAY ==
[2023-07-07 08:36] LABS: Percent Free Testosterone 2.27 % (1.50-4.20); Testosterone Free <.06 ng/dL (5.00-21.00); Testosterone Total <2.5 ng/dL (264.0-916.0)
== END ==
PROVIDERS: Family Provider Internal Medicine; PCP Internal Medicine; Referring Provider Internal Medicine Hematology & Oncology; Visit Provider Internal Medicine Hematology & Oncology
DX: C61 Malignant neoplasm of prostate (principal)
CPT/HCPCS: 36415; 84153; 84402; 84403

== ENCOUNTER → 2023-08-03 09:08 | Outpatient (CLI) | payer MEDICARE, OTHER, SELFPAY ==
[2023-08-03 11:21] LABS: Add Manual Diff / Slide Review NO; Basophils Absolute Auto 0 /uL (0-100); Basophils Percent Auto 0.5 % (0-2); Eosinophils Absolute Auto 100 /uL (0-450); Hemoglobin 12.9 g/dL (13.5-17.5); Lymphocytes Absolute Auto 2400 /uL (1100-4500); Lymphocytes Percent Auto 30.7 % (25-40); Mean Corpuscular HGB Conc 34.7 % (30-36); Mean Corpuscular Hemoglobin 34.2 PG (26-34); Mean Corpuscular Volume 98.6 fL (80-100); Monocytes Absolute Auto 700 /uL (0-900); Monocytes Percent Auto 9.6 % (3-14); Neutrophils Absolute Auto 4500 /uL (1500-7000); Neutrophils Percent Auto 58.2 % (50-75); Platelet Count 205 X10^3/uL (150-400); Red Blood Cell Count 3.76 X10^6/uL (4.5-5.9); Red Cell Distribution Width 13.2 % (11.6-14.8); White Blood Cell Count 7.8 X10^3/uL (4.5-11.0)
[2023-08-03 11:42] LABS: Alanine Aminotransferase 21 IU/L (<50); Alkaline Phosphatase 47 U/L (38-126); Aspartate Aminotransferase 33 IU/L (17-59); BUN Creatinine Ratio 22.1 (6-22); Bilirubin Total 0.8 mg/dL (0.2-1.3); Blood Urea Nitrogen 17 mg/dL (9-20); Calcium 9.1 mg/dL (8.4-10.2); Carbon Dioxide 32 mmol/L (22-32); Chloride 102 mmol/L (98-107); Estimated Glomerular Filt Rate > 60 mL/min (>60); Glucose 80 mg/dL (80-110); HEMOLYSIS < 15 (0-50); Potassium 3.6 mmol/L (3.4-5.1); Sodium 137 mmol/L (137-145)
[2023-08-10 07:22] LABS: Percent Free Testosterone 2.82 % (1.50-4.20)
== END ==
PROVIDERS: Family Provider Internal Medicine; PCP Internal Medicine; Referring Provider Internal Medicine Hematology & Oncology; Visit Provider Internal Medicine Hematology & Oncology
DX: C61 Malignant neoplasm of prostate (principal)
CPT/HCPCS: 36415; 80053; 84153; 84402; 84403; 85025

== ENCOUNTER → 2023-09-04 10:16 | Outpatient (CLI) | payer MEDICARE, OTHER, SELFPAY ==
[2023-09-04 12:15] LABS: Prostate Specific Antigen 0.456 ng/mL (0.10-4.00)
[2023-09-09 10:36] LABS: Percent Free Testosterone 2.62 % (1.50-4.20); Testosterone Free <.07 ng/dL (5.00-21.00); Testosterone Total <2.5 ng/dL (264.0-916.0)
== END ==
PROVIDERS: Family Provider Internal Medicine; PCP Internal Medicine; Referring Provider Internal Medicine Hematology & Oncology; Visit Provider Internal Medicine Hematology & Oncology
DX: C61 Malignant neoplasm of prostate (principal)
CPT/HCPCS: 36415; 84153; 84402; 84403

== ENCOUNTER → 2023-10-07 09:35 | Outpatient (CLI) | payer MEDICARE, OTHER, SELFPAY ==
[2023-10-07 11:34] LABS: Prostate Specific Antigen 0.698 ng/mL (0.10-4.00)
[2023-10-12 09:16] LABS: Percent Free Testosterone 1.97 % (1.50-4.20); Testosterone Free <.05 ng/dL (5.00-21.00); Testosterone Total <2.5 ng/dL (264.0-916.0)
== END ==
PROVIDERS: Family Provider Internal Medicine; PCP Internal Medicine; Referring Provider Internal Medicine Hematology & Oncology; Visit Provider Internal Medicine Hematology & Oncology
DX: C61 Malignant neoplasm of prostate (principal)
CPT/HCPCS: 36415; 84153; 84402; 84403

== ENCOUNTER → 2023-11-03 08:13 | Outpatient (CLI) | payer MEDICARE, OTHER, SELFPAY ==
[2023-11-03 09:50] LABS: Add Manual Diff / Slide Review NO; Basophils Absolute Auto 0 /uL (0-100); Basophils Percent Auto 0.6 % (0-2); Eosinophils Absolute Auto 100 /uL (0-450); Eosinophils Percent Auto 1.1 % (2-4); Hematocrit 35.1 % (41-53); Hemoglobin 12.3 g/dL (13.5-17.5); Lymphocytes Absolute Auto 2300 /uL (1100-4500); Mean Corpuscular HGB Conc 34.9 % (30-36); Mean Corpuscular Hemoglobin 34.4 PG (26-34); Mean Corpuscular Volume 98.6 fL (80-100); Monocytes Absolute Auto 800 /uL (0-900); Monocytes Percent Auto 10.1 % (3-14); Neutrophils Absolute Auto 4300 /uL (1500-7000); Neutrophils Percent Auto 57.2 % (50-75); Platelet Count 198 X10^3/uL (150-400); Red Blood Cell Count 3.56 X10^6/uL (4.5-5.9); Red Cell Distribution Width 13.2 % (11.6-14.8); White Blood Cell Count 7.5 X10^3/uL (4.5-11.0)
[2023-11-03 10:21] LABS: Alanine Aminotransferase 19 IU/L (<50); Albumin 3.9 g/dL (3.5-5.0); Albumin Globulin Ratio 1.8 (1.0-2.8); Alkaline Phosphatase 49 U/L (38-126); Aspartate Aminotransferase 25 IU/L (17-59); BUN Creatinine Ratio 23.5 (6-22); Bilirubin Total 0.7 mg/dL (0.2-1.3); Blood Urea Nitrogen 19 mg/dL (9-20); Calcium 9.2 mg/dL (8.4-10.2); Carbon Dioxide 31 mmol/L (22-32); Chloride 102 mmol/L (98-107); Estimated Glomerular Filt Rate > 60 mL/min (>60); Globulin 2.2 g/dL (1.7-4.1); Glucose 89 mg/dL (80-110); HEMOLYSIS < 15 (0-50); Sodium 135 mmol/L (137-145); Total Protein 6.1 g/dL (6.3-8.2)
== END ==
PROVIDERS: Family Provider Internal Medicine; PCP Internal Medicine; Referring Provider Internal Medicine Hematology & Oncology; Visit Provider Internal Medicine Hematology & Oncology
DX: C61 Malignant neoplasm of prostate (principal)
CPT/HCPCS: 36415; 80053; 84153; 84402; 84403; 85025

== ENCOUNTER → 2023-12-08 09:22 | Outpatient (CLI) | payer MEDICARE, OTHER, SELFPAY ==
[2023-12-08 18:02] LABS: Prostate Specific Antigen 0.864 ng/mL (0.10-4.00)
[2023-12-16 09:36] LABS: Percent Free Testosterone 1.15 % (1.50-4.20); Testosterone Free <.03 ng/dL (5.00-21.00); Testosterone Total <2.5 ng/dL (264.0-916.0)
== END ==
PROVIDERS: Family Provider Internal Medicine; PCP Internal Medicine; Referring Provider Internal Medicine Hematology & Oncology; Visit Provider Internal Medicine Hematology & Oncology
DX: C61 Malignant neoplasm of prostate (principal)
CPT/HCPCS: 36415; 84153; 84402; 84403

== ENCOUNTER 2023-12-16 11:50 | Day surgery (SDC) | payer MEDICARE, OTHER, SELFPAY ==
--- NOTE | 2023-12-16 | PATH_ITS ---
[facility] Accession Number: [id number] No. of containers..02 Tissue . 01 Material submitted: . PART A: colon - ASCENDING POLYP PART B: sigmoid colon - SIGMOID POLYP . 01 Diagnosis: Part A: ASCENDING POLYP: Tubular adenoma. . Part B: SIGMOID POLYP: Colonic mucosa with benign lymphoid aggregate. No neoplasm identified. STO 12/20/2023 1400 Local . 01 Electronically signed: . Hermann Arzola MD, Pathologist NPI- [id number] . 01 Gross description: . A. Received in formalin with two patient identifiers and ascending colon polyp, is a single toussaint soft tissue fragments, 0.7 cm in greatest dimension, submitted in A1. . B. Received in formalin with two patient identifiers and sigmoid polyp, is a single toussaint soft tissue fragment, 0.3 cm in greatest dimension, submitted in B1. ([id number]) /MRV 12/20/2023 1400 Local . 01 Pathologist provided ICD-10: D12.2, K63.89 . 01 CPT . 161598, 876684 Specimen Comment: A courtesy copy of this report has been sent to [phone] Performed at: [address] [address], [place], [place] [id number] MD Hermann Arzola MD Phone: [phone]
[2023-12-16 13:17] VITALS: BP 162/67; PULSE 80; RESP 17; TEMP 36.1; O2SAT 99
--- NOTE | 2023-12-16 13:32 | PM.HP.1 ---
History of Present Illness History of Present Illness Date Patient Seen: 12/16/23 Time Patient Seen: 13:32 [place] [facility] [place] Brandon is a 73-year-old man who is here for colonoscopy. His last one was about 10 years ago. [facility] Medical History (Updated 12/16/23 @ 13:33 by Prakash Dickerson MD) Essential hypertension Malignant neoplasm of prostate (09/27/00) Surgical History (Updated 07/14/19 @ 10:15 by Brandon King MD) S/P laminectomy with spinal fusion (~04/2019) History of prostatectomy Social History Smoking Status: Current some day smoker alcohol intake: current Meds Home Medications and Allergies Home Medications Medication Instructions Recorded Confirmed Type sildenafil 100 mg tablet 100 mg PO DAILY PRN sexual 07/14/19 12/16/23 Rx activity #10 tabs abiraterone 250 mg tablet 1,000 mg PO DAILY 07/07/22 12/16/23 History prednisone 5 mg tablet 10 mg PO DAILY 07/07/22 12/16/23 History simvastatin 10 mg tablet 10 mg PO DAILY #90 tabs 01/12/23 12/16/23 Rx losartan 100 0.5 tab PO BID #90 tabs 07/06/23 12/16/23 Rx mg-hydrochlorothiazide 25 mg tablet ascorbate calcium (vitamin C) 1 tab PO DAILY 07/13/23 12/16/23 History cholecalciferol (vitamin D3) 50 50 mcg PO DAILY 07/13/23 12/16/23 History mcg (2,000 unit) capsule multivitamin 1 tab PO DAILY 07/13/23 12/16/23 History sodium,potassium,mag sulfates 17.5 See Rx Instructions PO .COMPLEX 11/04/23 12/16/23 Rx gram-3.13 gram-1.6 gram oral soln #354 mL (Suprep Bowel Prep Kit) Allergies Allergy/AdvReac Type Severity Reaction Status Date / Time No Known Drug Allergies Allergy Unknown Verified 12/16/23 13:25 Exam Vital Signs (past 8 hours): - 12/16/23 13:17 Temperature 97.0 F L Pulse Rate 80 Respiratory Rate 17 Blood Pressure 162/67 H Pulse Oximetry 99 Oxygen Delivery Method Room Air Oxygen Delivery Method Room Air Const General: No acute distress Resp Effort & Inspection: normal respiratory effort Assessment & Plan Assessment and plan (1) Colon cancer screening: Status: Acute Plan We discussed the risks and benefits of colonoscopy for colon cancer screening and he would like to proceed. Time-Based Coding :: [TOTAL MINUTES] spent with patient and on the chart (including review of chart, obtaining history, exam, reviewing outside data, placing orders, documenting exam and treatment plan, and counseling patient) on [DATE].
[2023-12-16 14:07] VITALS: BP 107/55; PULSE 68; RESP 17; TEMP 36.3; O2SAT 95
--- NOTE | 2023-12-16 14:08 | PM.OP.COLON ---
Operative Date/Time/Diagnoses Date of procedure: 12/16/23 Time of procedure: 14:08 Pre-op diagnosis: Colon cancer screening Post-op diagnosis: same Procedure & Clinicians Study performed: Colonoscopy Same procedure as scheduled: Yes Surgeon: Prakash Dickerson Procedure Notes Procedure in detail: Surgeon: Prakash Dickerson MD Anesthesia: Juan Francisco Shaikh MD Procedure: The patient was brought to the endoscopy suite, placed in left lateral decubitus position. The patient was connected to monitoring devices. A time-out was performed. Sedation was administered. Once the patient was adequately sedated, a digital rectal exam was performed and was normal. The scope was then inserted and advanced to the cecum where the appendiceal orifice was identified and photographed. The scope was then slowly withdrawn over greater than 6 minutes. The mucosa was thoroughly inspected. There was a 5 mm polyp in the ascending colon removed with a cold snare. There was a 3 mm polyp in the distal sigmoid colon removed with the Jumbo forceps. The scope was retroflexed in the rectum. No other abnormalities were found. The scope was straightened and removed. The patient was awakened and brought to recovery. Scope withdrawal time: 10 minutes Sedation time: 19 minutes EBL: 5 mL Findings: Small polyp in the ascending colon and small polyp in the sigmoid colon Post-procedure Disposition: PACU
[2023-12-16 14:11] VITALS: BP 115/51; PULSE 61; RESP 15; TEMP 36.3; O2SAT 95
[2023-12-16 14:17] VITALS: BP 103/57; PULSE 59; RESP 15; TEMP 36.2; O2SAT 99
== END 2023-12-16 14:36 | disposition home or self-care (01) ==
PROVIDERS: Family Provider Internal Medicine; PCP Internal Medicine; Referring Provider Surgery; Visit Provider Surgery
PROC: 0DJD8ZZ Inspection of Lower Intestinal Tract, Via Natural or Artificial Opening Endoscopic (ICD-10-PCS; CPT 45378; principal; 2023-12-16 14:00)
DX: Z12.11 Encounter for screening for malignant neoplasm of colon (principal); D12.2 Benign neoplasm of ascending colon
CPT/HCPCS: 45385; 45380; J2704

== ENCOUNTER → 2024-01-07 08:04 | Outpatient (CLI) | payer MEDICARE, OTHER, SELFPAY ==
[2024-01-07 09:38] LABS: Prostate Specific Antigen 1.17 ng/mL (0.10-4.00)
[2024-01-16 11:40] LABS: Percent Free Testosterone 2.31 % (1.50-4.20); Testosterone Free <.06 ng/dL (5.00-21.00); Testosterone Total <2.5 ng/dL (264.0-916.0)
== END ==
PROVIDERS: Family Provider Internal Medicine; PCP Internal Medicine; Referring Provider Internal Medicine Hematology & Oncology; Visit Provider Internal Medicine Hematology & Oncology
DX: C61 Malignant neoplasm of prostate (principal)
CPT/HCPCS: 36415; 84153; 84402; 84403

== ENCOUNTER → 2024-02-10 08:00 | Outpatient (CLI) | payer MEDICARE, OTHER, SELFPAY ==
[2024-02-10 08:28] LABS: Add Manual Diff / Slide Review NO; Basophils Absolute Auto 0 /uL (0-100); Basophils Percent Auto 0.4 % (0-2); Eosinophils Absolute Auto 100 /uL (0-450); Eosinophils Percent Auto 1.1 % (2-4); Hematocrit 36.7 % (41-53); Hemoglobin 12.7 g/dL (13.5-17.5); Lymphocytes Absolute Auto 3400 /uL (1100-4500); Lymphocytes Percent Auto 40.8 % (25-40); Mean Corpuscular HGB Conc 34.6 % (30-36); Mean Corpuscular Hemoglobin 34.1 PG (26-34); Mean Corpuscular Volume 98.5 fL (80-100); Monocytes Absolute Auto 800 /uL (0-900); Monocytes Percent Auto 9.5 % (3-14); Neutrophils Absolute Auto 4000 /uL (1500-7000); Neutrophils Percent Auto 48.2 % (50-75); Platelet Count 223 X10^3/uL (150-400); Red Blood Cell Count 3.73 X10^6/uL (4.5-5.9); Red Cell Distribution Width 13.2 % (11.6-14.8); White Blood Cell Count 8.3 X10^3/uL (4.5-11.0)
[2024-02-10 08:51] LABS: Alanine Aminotransferase 26 IU/L (<50); Albumin Globulin Ratio 1.7 (1.0-2.8); Alkaline Phosphatase 51 U/L (38-126); Aspartate Aminotransferase 34 IU/L (17-59); BUN Creatinine Ratio 30.5 (6-22); Bilirubin Total 0.6 mg/dL (0.2-1.3); Blood Urea Nitrogen 25 mg/dL (9-20); Calcium 9.4 mg/dL (8.4-10.2); Carbon Dioxide 31 mmol/L (22-32); Chloride 101 mmol/L (98-107); Estimated Glomerular Filt Rate > 60 mL/min (>60); Globulin 2.4 g/dL (1.7-4.1); Glucose 95 mg/dL (80-110); HEMOLYSIS < 15 (0-50); Potassium 4.1 mmol/L (3.4-5.1); Sodium 136 mmol/L (137-145); Total Protein 6.4 g/dL (6.3-8.2)
[2024-02-10 09:24] LABS: Prostate Specific Antigen 0.552 ng/mL (0.10-4.00)
[2024-02-15 06:36] LABS: Percent Free Testosterone 2.02 % (1.50-4.20); Testosterone Free <.05 ng/dL (5.00-21.00); Testosterone Total <2.5 ng/dL (264.0-916.0)
== END ==
PROVIDERS: Family Provider Internal Medicine; PCP Internal Medicine; Referring Provider Internal Medicine Hematology & Oncology; Visit Provider Internal Medicine Hematology & Oncology
DX: C61 Malignant neoplasm of prostate (principal)
CPT/HCPCS: 36415; 80053; 84153; 84402; 84403; 85025

== ENCOUNTER → 2024-03-15 08:38 | Outpatient (CLI) | payer MEDICARE, OTHER, SELFPAY ==
[2024-03-15 09:17] LABS: Add Manual Diff / Slide Review NO; Basophils Absolute Auto 0 /uL (0-100); Basophils Percent Auto 0.5 % (0-2); Eosinophils Absolute Auto 0 /uL (0-450); Eosinophils Percent Auto 0.4 % (2-4); Hematocrit 35.7 % (41-53); Hemoglobin 12.1 g/dL (13.5-17.5); Lymphocytes Absolute Auto 2900 /uL (1100-4500); Lymphocytes Percent Auto 34.4 % (25-40); Mean Corpuscular HGB Conc 33.8 % (30-36); Mean Corpuscular Hemoglobin 33.3 PG (26-34); Mean Corpuscular Volume 98.6 fL (80-100); Monocytes Absolute Auto 800 /uL (0-900); Monocytes Percent Auto 9.3 % (3-14); Neutrophils Absolute Auto 4700 /uL (1500-7000); Neutrophils Percent Auto 55.4 % (50-75); Platelet Count 239 X10^3/uL (150-400); Red Blood Cell Count 3.62 X10^6/uL (4.5-5.9); Red Cell Distribution Width 13.5 % (11.6-14.8); White Blood Cell Count 8.4 X10^3/uL (4.5-11.0)
== END ==
LOC: LAB 08:42
PROVIDERS: Family Provider Internal Medicine; PCP Internal Medicine; Referring Provider Internal Medicine Hematology & Oncology; Visit Provider Internal Medicine Hematology & Oncology
DX: C61 Malignant neoplasm of prostate (principal)
CPT/HCPCS: 36415; 85025

== ENCOUNTER → 2024-03-17 09:40 | Outpatient (CLI) | payer MEDICARE, OTHER, SELFPAY ==
[2024-03-17 12:33] LABS: Prostate Specific Antigen 0.397 ng/mL (0.10-4.00)
== END ==
LOC: LAB 09:42
PROVIDERS: Family Provider Internal Medicine; PCP Internal Medicine; Referring Provider Internal Medicine Hematology & Oncology; Visit Provider Internal Medicine Hematology & Oncology
DX: C61 Malignant neoplasm of prostate (principal)
CPT/HCPCS: 36415; 84153

== ENCOUNTER → 2024-04-13 12:42 | Outpatient (CLI) | payer MEDICARE, OTHER, SELFPAY ==
[2024-04-13 14:06] LABS: Prostate Specific Antigen 0.277 ng/mL (0.10-4.00)
== END ==
PROVIDERS: Family Provider Internal Medicine; PCP Internal Medicine; Referring Provider Internal Medicine Hematology & Oncology; Visit Provider Internal Medicine Hematology & Oncology
DX: C61 Malignant neoplasm of prostate (principal)
CPT/HCPCS: 36415; 84153; 84402; 84403

== ENCOUNTER → 2024-05-09 11:06 | Outpatient (CLI) | payer MEDICARE, OTHER, SELFPAY ==
[2024-05-09 12:00] LABS: Add Manual Diff / Slide Review NO; Basophils Absolute Auto 0 /uL (0-100); Basophils Percent Auto 0.5 % (0-2); Eosinophils Absolute Auto 100 /uL (0-450); Eosinophils Percent Auto 1.1 % (2-4); Hematocrit 37.1 % (41-53); Hemoglobin 12.7 g/dL (13.5-17.5); Lymphocytes Absolute Auto 3100 /uL (1100-4500); Lymphocytes Percent Auto 32.7 % (25-40); Mean Corpuscular HGB Conc 34.3 % (30-36); Mean Corpuscular Hemoglobin 33.7 PG (26-34); Mean Corpuscular Volume 98.2 fL (80-100); Monocytes Absolute Auto 1000 /uL (0-900); Monocytes Percent Auto 10.2 % (3-14); Neutrophils Absolute Auto 5200 /uL (1500-7000); Neutrophils Percent Auto 55.5 % (50-75); Platelet Count 218 X10^3/uL (150-400); Red Blood Cell Count 3.78 X10^6/uL (4.5-5.9); Red Cell Distribution Width 13.5 % (11.6-14.8); White Blood Cell Count 9.3 X10^3/uL (4.5-11.0)
[2024-05-09 12:34] LABS: Alanine Aminotransferase 25 IU/L (<50); Albumin 4.3 g/dL (3.5-5.0); Albumin Globulin Ratio 1.7 (1.0-2.8); Alkaline Phosphatase 62 U/L (38-126); Aspartate Aminotransferase 31 IU/L (17-59); BUN Creatinine Ratio 29.9 (6-22); Bilirubin Total 0.7 mg/dL (0.2-1.3); Blood Urea Nitrogen 26 mg/dL (9-20); Calcium 9.6 mg/dL (8.4-10.2); Carbon Dioxide 28 mmol/L (22-32); Chloride 100 mmol/L (98-107); Estimated Glomerular Filt Rate > 60 mL/min (>60); Globulin 2.5 g/dL (1.7-4.1); Glucose 90 mg/dL (80-110); HEMOLYSIS < 15 (0-50); Potassium 3.8 mmol/L (3.4-5.1); Sodium 135 mmol/L (137-145); Total Protein 6.8 g/dL (6.3-8.2)
[2024-05-09 12:58] LABS: Prostate Specific Antigen 0.176 ng/mL (0.10-4.00)
== END ==
LOC: LAB 11:10
PROVIDERS: Family Provider Internal Medicine; PCP Internal Medicine; Referring Provider Internal Medicine Hematology & Oncology; Visit Provider Internal Medicine Hematology & Oncology
DX: C61 Malignant neoplasm of prostate (principal)
CPT/HCPCS: 36415; 80053; 84153; 84402; 84403; 85025

== ENCOUNTER → 2024-05-25 07:56 | Outpatient (CLI) | payer MEDICARE, OTHER, SELFPAY ==
--- NOTE | 2024-05-25 07:59 | DI.CT.S_ITS ---
PROCEDURE: CT KIDNEY URETER BLADDER (KUB) INDICATIONS: intermittent hematuria x3 weeks TECHNIQUE: Axial sections were acquired from the lung bases to the pubic symphysis. Coronal and sagittal reformats were performed. For radiation dose reduction, the following was used: automated exposure control, adjustment of mA and/or kV according to patient size. COMPARISON: None. FINDINGS: Image quality: Diagnostic. Peritoneum: No pneumoperitoneum or ascites. Bones: No acute osseous abnormality. Multilevel lumbar osteoarthrosis. Right rudimentary T12 ribs followed by 5 non rib-bearing lumbar vertebrae. Mild bilateral sacroiliac osteoarthritis. Mild bilateral hip osteoarthritis. Lower Chest: No acute abnormality. Liver: Normal in size and contour. Gallbladder: No stones or pericholecystic fluid. Biliary tree: No intrahepatic or extrahepatic biliary ductal dilatation. Pancreas: Within normal limits. Spleen: Normal in size and contour. Kidneys: No hydronephrosis or obstructive urolithiasis. Punctate right mid calyceal calculi between 1-2 mm (2/55). Left mid calyceal 5 mm calculus (3/65). Adrenals: No adrenal nodularity. Bladder: Normal in size and wall thickness. : Prostate surgical clips. Stomach: Normal in size and contour. Bowel: Normal in diameter without any bowel obstruction. Appendix within normal limits (2/90). Mild mural thickening of the sigmoid colon in a background of colonic diverticulosis (4/63). Lymph Nodes: No retroperitoneal, mesenteric, or inguinal lymphadenopathy. Vascular: No abdominal aortic aneurysm. Moderate aortoiliac atherosclerosis. Soft Tissues: A few subcutaneous anterior abdominal wall nodules are present (3/11; 4/43), which are nonspecific but may represent injection granulomas or epidermal inclusion cysts. IMPRESSION: 1. No hydronephrosis or obstructive urolithiasis. 2. Bilateral nonobstructive calyceal nephrolithiasis. 3. Likely chronic sigmoid diverticulitis. Please correlate with any prior colonoscopy records for confirmation. Dictated by: Juan Francisco Salazar M.D. on 05/25/2024 at 8:29 Approved by: Juan Francisco Salazar M.D. on 05/25/2024 at 8:36
[2024-05-25 10:04] LABS: Appearance Urine UA CLEAR; Bilirubin Urine UA NEGATIVE (NEGATIVE); Color Urine UA ORANGE; Glucose Urine UA NEGATIVE (Negative); Ketones Urine UA NEGATIVE (NEGATIVE); Leukocyte Esterase Urine UA NEGATIVE (NEGATIVE); Nitrite Urine UA NEGATIVE (Negative); Occult Blood Urine UA 3+ (Negative); Protein Urine UA TRACE (Negative); Urobilinogen Urine UA 0.2 E.U./dL (0.2)
[2024-05-25 11:32] LABS: Bacteria Urine Occasional (0-1); Culture Indicated Urine Cult Not Indicated; RBC Urine 30-100/HPF (0-5/HPF); Squamous Epithelial Cell Urine None Seen (0-5/HPF); Urine Volume 10mL (spun); WBC Urine None Seen (0-5/HPF)
== END ==
PROVIDERS: Family Provider Internal Medicine; PCP Internal Medicine; Referring Provider Internal Medicine; Visit Provider Internal Medicine
DX: N20.0 Calculus of kidney (principal); R31.9 Hematuria, unspecified; K57.90 Diverticulosis of intestine, part unspecified, without perforation or abscess without bleeding; I70.0 Atherosclerosis of aorta; M47.818 Spondylosis without myelopathy or radiculopathy, sacral and sacrococcygeal region; M47.817 Spondylosis without myelopathy or radiculopathy, lumbosacral region; M16.0 Bilateral primary osteoarthritis of hip; Z90.79 Acquired absence of other genital organ(s)
CPT/HCPCS: 74176; 81001

== ENCOUNTER → 2024-06-07 13:04 | Outpatient (CLI) | payer MEDICARE, OTHER, SELFPAY ==
[2024-06-07 13:34] LABS: Appearance Urine UA SL CLOUDY; Bilirubin Urine UA NEGATIVE (NEGATIVE); Color Urine UA YELLOW; Glucose Urine UA NEGATIVE (Negative); Ketones Urine UA NEGATIVE (NEGATIVE); Leukocyte Esterase Urine UA NEGATIVE (NEGATIVE); Nitrite Urine UA NEGATIVE (Negative); Occult Blood Urine UA 3+ (Negative); Protein Urine UA NEGATIVE (Negative); Urobilinogen Urine UA 0.2 E.U./dL (0.2)
[2024-06-07 13:36] LABS: Add Manual Diff / Slide Review NO; Basophils Absolute Auto 0 /uL (0-100); Basophils Percent Auto 0.5 % (0-2); Eosinophils Absolute Auto 100 /uL (0-450); Eosinophils Percent Auto 0.6 % (2-4); Hematocrit 36.2 % (41-53); Hemoglobin 12.6 g/dL (13.5-17.5); Lymphocytes Absolute Auto 2400 /uL (1100-4500); Mean Corpuscular HGB Conc 34.7 % (30-36); Mean Corpuscular Hemoglobin 33.9 PG (26-34); Mean Corpuscular Volume 97.7 fL (80-100); Monocytes Absolute Auto 900 /uL (0-900); Monocytes Percent Auto 9.6 % (3-14); Neutrophils Absolute Auto 5600 /uL (1500-7000); Neutrophils Percent Auto 62.3 % (50-75); Platelet Count 208 X10^3/uL (150-400); Red Cell Distribution Width 13.2 % (11.6-14.8)
[2024-06-07 13:38] LABS: Urine Volume 10mL (spun)
[2024-06-07 13:39] LABS: Bacteria Urine None Seen; Culture Indicated Urine Cult Not Indicated; RBC Urine 10-30/HPF (0-5/HPF); Squamous Epithelial Cell Urine None Seen (0-5/HPF); WBC Urine None Seen (0-5/HPF)
[2024-06-07 14:23] LABS: Prostate Specific Antigen < 0.064 ng/mL (0.10-4.00)
[2024-06-26 12:08] LABS: Percent Free Testosterone 2.01 % (1.50-4.20); Testosterone Free <.05 ng/dL (5.00-21.00); Testosterone Total <2.5 ng/dL (264.0-916.0)
== END ==
PROVIDERS: Family Provider Internal Medicine; PCP Internal Medicine; Referring Provider Urology; Visit Provider Urology
DX: C61 Malignant neoplasm of prostate (principal); R31.9 Hematuria, unspecified
CPT/HCPCS: 36415; 81001; 84153; 84402; 84403; 85025

== ENCOUNTER → 2024-06-29 07:49 | Outpatient (CLI) | payer MEDICARE, OTHER, SELFPAY ==
--- NOTE | 2024-06-29 07:51 | DI.CT.S_ITS ---
PROCEDURE: CT ABDOMEN PELVIS WO/W CON INDICATIONS: Gross Hematuria TECHNIQUE: Optional 5 mm thick noncontrast images acquired from the diaphragm to the symphysis pubis. After the administration of intravenous contrast, 5 mm thick images acquired from the diaphragm to the symphysis pubis after a 10-minute delay. 2 mm thick coronal and sagittal reformats were then performed of the kidneys and ureters. For radiation dose reduction, the following was used: automated exposure control, adjustment of mA and/or kV according to patient size. COMPARISON: [facility], CT, CT KIDNEY URETER BLADDER (KUB), 05/25/2024, 8:15. FINDINGS: Image quality: Diagnostic. Kidneys and Ureters: Again noted are small bilateral nonobstructing renal calculi measures up to 4 mm in size in midpole left kidney and up to 2 mm in size in midpole right kidney. Both kidneys are normal in size, without hydronephrosis or obstructing stones. No perinephric fat stranding. There is normal bilateral renal enhancement. Renal calyces appear normal in morphology when filled with contrast. Opacified portions of both ureters demonstrate normal caliber Bladder: Diffuse bladder wall thickening is seen. No discrete bladder wall mass.. No calcified bladder stones. OTHER: Lower chest: Unremarkable. Liver: No solid mass. Gallbladder: No radiopaque gallstones or wall thickening. Biliary ducts: No biliary dilation. Pancreas: No ductal dilation. Spleen: Size is within normal limits. Adrenal Glands: No adrenal nodules. Stomach and Bowel: Normal colonic caliber, without significant wall thickening. Appendix is visualized and is within normal limits. Colonic diverticulosis without CT evidence of acute diverticulitis. No abscess collection. Peritoneum: No abnormal intraperitoneal fluid. No free air. Ventral Wall: No hernia. Abdominal Nodes: No retroperitoneal or mesenteric adenopathy by size criteria. Vessels: Aorta and inferior vena cava are normal in size. Moderate atherosclerotic disease in abdominal aorta and bilateral iliac arteries are seen. PELVIS: Pelvic Organs: Unremarkable. Pelvic Nodes: No enlarged lymph nodes. Miscellaneous: No inguinal hernias are seen. Bones: No aggressive osseous abnormality. IMPRESSION: 1. Bilateral nonobstructing renal calculi as above. No obstructing stones or hydronephrosis. No filling defects within the opacified renal collecting system or ureters. 2. Diffuse bladder wall thickening, no discrete bladder wall mass or calcified bladder stones. Finding may represent infectious or inflammatory cystitis, suggest clinical correlation. 3. Normal appendix. No bowel obstruction or abnormal bowel wall thickening. Colonic diverticulosis without CT evidence of acute diverticulitis. No free fluid or free air. Dictated by: Daniel Campbell M.D. on 06/29/2024 at 17:52 Approved by: Daniel Campbell M.D. on 06/29/2024 at 18:04
[2024-06-29 08:19] LABS: Estimated Glomerular Filt Rate > 60 mL/min (>60)
== END ==
PROVIDERS: Family Provider Internal Medicine; PCP Internal Medicine; Referring Provider Urology; Visit Provider Urology
DX: Z01.812 Encounter for preprocedural laboratory examination (principal); N20.0 Calculus of kidney; R31.0 Gross hematuria; K57.90 Diverticulosis of intestine, part unspecified, without perforation or abscess without bleeding
CPT/HCPCS: 36415; 74178; 82565; Q9967

== ENCOUNTER → 2024-07-05 10:51 | Outpatient (CLI) | payer MEDICARE, OTHER, SELFPAY | PROVIDERS: Family Provider Internal Medicine; PCP Internal Medicine; Visit Provider Urology | DX: R31.21 Asymptomatic microscopic hematuria (principal); R39.9 Unspecified symptoms and signs involving the genitourinary system | CPT/HCPCS: 87086 ==

== ENCOUNTER → 2024-07-13 09:55 | Outpatient (CLI) | payer MEDICARE, OTHER, SELFPAY ==
[2024-07-13 11:23] LABS: Testosterone 20.8 ng/dL (71.8-623)
[2024-07-13 11:56] LABS: Prostate Specific Antigen < 0.064 ng/mL (0.10-4.00)
== END ==
PROVIDERS: Physician Assistant; Family Provider Internal Medicine; PCP Internal Medicine; Referring Provider Internal Medicine; Visit Provider Registered Nurse
DX: C61 Malignant neoplasm of prostate (principal)
CPT/HCPCS: 36415; 84153; 84403

== ENCOUNTER 2024-08-08 13:41 | Day surgery (SDC) | payer MEDICARE, OTHER, SELFPAY ==
[2024-08-07 08:28] VITALS: BMI 30.5
--- NOTE | 2024-08-08 | PATH_ITS ---
[facility] Accession Number: [id number] No. of containers..01 Tissue . 01 Material submitted: . bladder - BLADDER TUMOR . 01 Clinical history: . bladder disorder, unspecified . 01 Diagnosis: URINARY BLADDER TUMOR, TRANSURETHRAL RESECTION BLADDER TUMOR (TURBT): Papillary urothelial carcinoma, high grade, invasive into the lamina propria. No definite muscularis propria identified. Negative for lymphovascular invasion. Associated large areas of necrosis present. Please see microscopic description. MRV 08/17/2024 1833 Local . 01 Electronically signed: . Skip Croft MD, Pathologist NPI- [id number] . 01 Gross description: . BLADDER TUMOR: Received in formalin are 3 fragment(s) of toussaint, soft tissue measuring 0.6 x 0.5 x 0.4 cm to 0.9 x 0.6 x 0.4 cm submitted entirely in 1 cassette(s) /CHEY 08/10/2024 1653 Local . 01 Microscopic: . Microscopic examination reveals high-grade carcinoma with papillary morphology, invading into the lamina propria (subepithelial connective tissue). Large areas of necrosis are present. No definite muscularis propria, by morphology is identified. Smooth muscle actin immunostain is performed to further evaluate for the presence of muscularis propria and highlights thin smooth muscle bundles, favor tangential orientation of muscularis mucosae. Therefore, no definite muscularis propria is present to evaluate for involvement, on the submitted biopsy. . Per reviewed chart notes, the patient has history of prostate cancer and prostatectomy. Therefore, a panel of immunostains is performed to support urothelial origin over prostatic, with the following results: . PSA: Negative on the tumor cells. IZZY-3: Positive, uniform and diffuse on the tumor cells. CK7: Positive on the tumor cells, uniform, diffuse. CK20: Patchy staining on the tumor cells. High molecular weight cytokeratin: Patchy variable positive on the tumor cells. Uroplakin: Focal positive on the tumor cells. . Based on this immunohistochemical panel and with positive IZZY-3/CK7/CK20/uroplakin and high molecular cytokeratin, and given negative PSA, this carcinoma is consistent with urothelial origin. The results argue against prostatic origin. . Please correlate with the cystoscopic findings. . As part of ongoing water quality manager, this case is also reviewed by Dr. Griselda Hoyt, who agrees with the interpretation. . * This test was developed and the performance characteristics were validated by [employer]. It has not been cleared or approved by the U.S. Food and Drug Administration. . 01 Pathologist provided ICD-10: C61, C67.9 . 01 CPT . 231613, [id number], H97811 Specimen Comment: A courtesy copy of this report has been sent to [facility] Pathology Specimen Comment: A duplicate report has been generated due to demographic updates. Performed at: [address] [address], [place], [place] [id number] MD Hermann Arzola MD Phone: [phone]
[2024-08-08 14:21] VITALS: BMI 29.1
[2024-08-08 14:49] VITALS: BP 168/67; PULSE 84; RESP 16; TEMP 36.9; O2SAT 96
[2024-08-08] MEDS: LACTATED RINGERS 1,000 ML 42 ML IV (14:50)
--- NOTE | 2024-08-08 16:08 | PM.PREOP ---
Pre-operative Note COVID-19 COVID-19 status: Not tested Interval Note History & Physical reviewed/Exam performed by Physician: Yes Changes to H&P: No
[2024-08-08] MEDS: levoFLOXacin 500 MG/100 ML PIGGYBACK 100 MG IV (16:31)
--- NOTE | 2024-08-08 16:40 | SUR.OPER ---
Lithotomy on padded OR bed, head on pillow, arms secured on padded arm boards at <90 degrees abduction. Legs secured in padded yellow fins stirrups.
[2024-08-08 16:59] VITALS: BP 176/64; PULSE 79; RESP 10; TEMP 36.3; O2SAT 100
[2024-08-08 17:03] VITALS: BP 180/65; PULSE 76; RESP 28; O2SAT 99
[2024-08-08 17:10] VITALS: BP 179/73; PULSE 77; RESP 14; TEMP 36.3; O2SAT 99
[2024-08-08] MEDS: ACETAMINOPHEN 325 MG TABLET 975 MG PO (17:13)
[2024-08-08 17:15] VITALS: BP 199/75; PULSE 79; RESP 12; O2SAT 100
[2024-08-08 17:21] VITALS: BP 198/76; PULSE 82; RESP 15; O2SAT 98
--- NOTE | 2024-08-08 17:23 | P.OP_ITS ---
Operative Date/Time/Diagnoses Date of procedure: 08/08/24 Time of procedure: 16:30 Pre-op diagnosis: Bladder mass Post-op diagnosis: same Procedure & Clinicians Procedure: Cystoscopy Transurethral resection of bladder tumor Same procedure as scheduled: Yes Indications: 74 y/o M w/ biochemically recurrent prostate cancer s/p an open radical p rostatectomy followed by salvage XRT who was noted to have gross hematuria over the last few months whose CT IVP was otherwise unremarkable. Discussed that his cystoscopy today was notable for a 3cm mass along his urinary trigone and that I was unable to visualize either ureteral orifice secondary to a small blood clot. Discussed that I am unsure if this mass represents urothelial cell carcinoma or recurrence of his prostate cancer, therefore, strongly recommend management via a transurethral resection of his bladder tumor. Surgeon: Allen Bowens Click Yes if Unassisted: Yes Anesthesia Type: General Operative Notes Findings: 3cm mass along his urinary trigone Closure Type: not applicable Specimen(s): other (bladder mass) Applied: catheter Estimated Blood Loss (mL): 20 Blood products transfused: none Procedure in detail: Patient was identified in the preoperative holding area and consent confirmed. He was then brought to the operating room where general anesthesia was induced. He was then placed in the low lithotomy position. He was then prepped and draped in the usual sterile fashion. A surgical timeout was conducted and all were in agreement. Access to the bladder was obtained via a 21Fr cystoscope (he was noted to have a surgically absent prostate). Complete cystoscopy was then performed using a 30 and 70 degree lens. A3cm mass was visualized along his urinary trigone. Bilateral ureteral orifices were visualized and noted to be orthotopic in lorene ure. No other concerning lesions were appreciated. The cystoscope was then removed and his urethral meatus was serially dilated using Janel sounds from 22Fr to 30Fr. The 26Fr resectoscope with visual obturator was then advanced through his urethra and into his bladder. The working element with Gyrus loop was then assembled and passed through the resectoscope and into the bladder. The mass was then resected to its base. The resection bed was then fulgurated. All bladder specimens were then manually evacuated from the bladder using the resectoscope. Hemostasis was evaluated and noted to be excellent at case end. An 18Fr will was then inserted into the bladder at case end, 10cc of sterile water was used for balloon insufflation. Anesthesia was reversed, he was extubated in the OR and transferred to the PACU in stable condition for recovery. Complications: none Post-operative Condition: stable Disposition: PACU Plan for aftercare: Discharge home from PACU. Will return to Urology clinic on 09 August 2024 to have his will catheter removed.
== END 2024-08-08 17:34 | disposition home or self-care (01) ==
PROVIDERS: Family Provider Internal Medicine; PCP Internal Medicine; Referring Provider Urology; Visit Provider Urology
PROC: 0TBB8ZZ Excision of Bladder, Via Natural or Artificial Opening Endoscopic (ICD-10-PCS; CPT 52235; principal; 2024-08-08 15:30)
DX: C67.9 Malignant neoplasm of bladder, unspecified (principal); R31.0 Gross hematuria; I10 Essential (primary) hypertension; Z85.46 Personal history of malignant neoplasm of prostate; C61 Malignant neoplasm of prostate
CPT/HCPCS: 52235; J1100; J1956; J2405; J2704; J3010

== ENCOUNTER → 2024-08-09 12:11 | Outpatient (CLI) | payer MEDICARE, OTHER, SELFPAY ==
[2024-08-09 12:53] LABS: Add Manual Diff / Slide Review NO; Basophils Absolute Auto 0 /uL (0-100); Basophils Percent Auto 0.3 % (0-2); Eosinophils Absolute Auto 0 /uL (0-450); Eosinophils Percent Auto 0.2 % (2-4); Hematocrit 33.4 % (41-53); Hemoglobin 11.7 g/dL (13.5-17.5); Lymphocytes Absolute Auto 1800 /uL (1100-4500); Lymphocytes Percent Auto 15.4 % (25-40); Mean Corpuscular Hemoglobin 34.2 PG (26-34); Mean Corpuscular Volume 97.7 fL (80-100); Monocytes Absolute Auto 1100 /uL (0-900); Monocytes Percent Auto 9.6 % (3-14); Neutrophils Absolute Auto 8900 /uL (1500-7000); Neutrophils Percent Auto 74.5 % (50-75); Platelet Count 241 X10^3/uL (150-400); Red Blood Cell Count 3.41 X10^6/uL (4.5-5.9); Red Cell Distribution Width 13.6 % (11.6-14.8)
[2024-08-09 14:52] LABS: Alanine Aminotransferase 23 IU/L (<50); Albumin 4.1 g/dL (3.5-5.0); Albumin Globulin Ratio 1.9 (1.0-2.8); Alkaline Phosphatase 67 U/L (38-126); Aspartate Aminotransferase 30 IU/L (17-59); BUN Creatinine Ratio 22.2 (6-22); Bilirubin Total 0.8 mg/dL (0.2-1.3); Blood Urea Nitrogen 18 mg/dL (9-20); Calcium 9.3 mg/dL (8.4-10.2); Carbon Dioxide 23 mmol/L (22-32); Chloride 99 mmol/L (98-107); Estimated Glomerular Filt Rate > 60 mL/min (>60); Globulin 2.2 g/dL (1.7-4.1); Glucose 106 mg/dL (70-99); HEMOLYSIS < 15 (0-50); Potassium 3.8 mmol/L (3.4-5.1); Sodium 128 mmol/L (137-145); Total Protein 6.3 g/dL (6.3-8.2)
[2024-08-09 15:24] LABS: Prostate Specific Antigen < 0.064 ng/mL (0.10-4.00)
== END ==
PROVIDERS: Family Provider Internal Medicine; PCP Internal Medicine; Referring Provider Physician Assistant; Visit Provider Physician Assistant
DX: C61 Malignant neoplasm of prostate (principal)
CPT/HCPCS: 36415; 80053; 84153; 84402; 84403; 85025

== ENCOUNTER 2024-08-14 08:33 | Emergency (ER) | payer MEDICARE, OTHER, SELFPAY ==
[2024-08-14 08:50] VITALS: BP 215/88; PULSE 79; RESP 17; TEMP 36.8; O2SAT 98; BMI 29.4
--- NOTE | 2024-08-14 09:02 | ED.MALEGU ---
HPI - Male Genitourinary General Chief complaint: Urogenital-Male Stated complaint: Swollen penis from URO procedure last week Time Seen by Provider: 08/14/24 09:00 Source: patient Mode of arrival: Ambulatory History of Present Illness HPI Narrative: 74-year-old male history of prostate cancer, recently underwent cystoscopy with Dr. Bowens, here with penile swelling. He has noted some redness of the skin but no significant pain. No discharge from the urethral opening or skin. No fever. No body sweats or aches but has noted an occasional chill. He has some dribbling with attempts to urinate, other times has a strong stream, does not report any significant changes since the swelling began last night. Related Data Home Medications ?Medication ?Instructions ?Recorded ?Confirmed abiraterone 250 mg tablet 1,000 mg PO DAILY 07/07/22 08/09/24 ascorbate calcium (vitamin C) 1 tab PO DAILY 07/13/23 08/09/24 cholecalciferol (vitamin D3) 50 50 mcg PO DAILY 07/13/23 08/09/24 mcg (2,000 unit) capsule multivitamin 1 tab PO DAILY 07/13/23 08/09/24 dexamethasone 0.5 mg tablet 0.5 mg PO BID 01/13/24 08/09/24 Previous Rx's ?Medication ?Instructions ?Recorded sildenafil 100 mg tablet 100 mg PO DAILY PRN sexual 07/14/19 activity #10 tabs simvastatin 10 mg tablet 10 mg PO DAILY #90 tabs 01/10/24 losartan 100 0.5 tab PO BID #90 tabs 04/05/24 mg-hydrochlorothiazide 25 mg tablet amlodipine 5 mg tablet 5 mg PO DAILY #90 tabs 07/13/24 cephalexin 500 mg capsule 500 mg PO BID 5 days #10 caps 08/14/24 cephalexin 500 mg capsule 500 mg PO BID 7 days #14 caps 08/14/24 Allergies Allergy/AdvReac Type Severity Reaction Status Date / Time No Known Drug Allergies Allergy Unknown Verified 08/14/24 08:50 Review of Systems Review of Systems Narrative: Pertinent ROS obtained and negative except as stated in HPI Patient History Medical History Asymptomatic microscopic hematuria Secondhand smoke exposure History of tobacco use History of immunotherapy History of radiation therapy Gross hematuria Hx of adenomatous colonic polyps Essential hypertension Malignant neoplasm of prostate (09/27/00) Surgical History Hx of colonoscopy (12/16/23) S/P laminectomy with spinal fusion (~04/2019) History of prostatectomy Social History household members: spouse Smoking Status: Never smoker alcohol intake: current Smoking Status: Never smoker alcohol intake frequency: 0-2 drinks per day Alcohol type: beer Exam Initial Vital Signs Initial Vital Signs: Vital Signs Temperature 98.2 F 08/14/24 08:50 Pulse Rate 79 08/14/24 08:50 Respiratory Rate 17 08/14/24 08:50 Blood Pressure 215/88 H 08/14/24 08:50 Pulse Oximetry 98 08/14/24 08:50 Oxygen Delivery Method Room Air 08/14/24 08:50 Constitutional: Well appearing, no acute distress Head: NCAT Abdominal: soft, non-tender : there is edema of distal inferior penile shaft and less so of glans. There is slight pink inflammation on areas on contact with briefs without diffuse blanching erythema or induration. no abscess. Pt is circumcised. Normal scortum/no testicular swelling/pain. Skin: warm and dry, no diaphoresis Neurological: Alert and oriented x3 Course Orders Ordered: ED Orders 08/14/24 08:50 Urine Microscopic Stat Vital Signs Vital signs: Vital Signs - 8 hr 08/14/24 08:50 08/14/24 09:56 Temperature 98.2 F Pulse Rate 79 88 Respiratory Rate 17 18 Blood Pressure 215/88 H 193/79 H Pulse Oximetry 98 99 Oxygen Delivery Method Room Air Room Air MDM - Male Genitourinary Lab Data Labs: Lab Results 08/14/24 Range/Units 08:50 Urine RBC 1-5/hpf D (0-5/HPF) Urine WBC 0-1/hpf (0-5/HPF) Ur Squamous Epith Cells 0-1 /hpf (0-5/HPF) Urine Bacteria None seen (None) Ur Culture Indicated? Cult not indicated Vol Urine Centrifuged 10ml (spun) Urine Dip Bedside Urine Glucose Negative Bedside Urine Bilirubin - Negative Bedside Urine Ketone - Negative Urine Specific Draper 1.010 Bedside Urine Occult Blood + Bedside Urine pH 7.0 Bedside Urine Protein - Negative Bedside Urine Urobilinogen - Negative Bedside Urine Nitrite - Negative Bedside Urine Leukocytes - Negative Esterase MDM Narrative Medical decision making narrative: In brief, this is a 74-year-old male who recently underwent cystoscopy as part of evaluation for bladder mass, here with penile edema since last night. No systemic symptoms. No changes with urination. No significant pain. Pt has been using pads after procedure and wonders whether may have caused some irritation. In chart review: I see follows with Dr. Bowens of urology as recently as August 04, 2024: 74 y/o M w/ biochemically recurrent prostate cancer s/p an open radical prostatectomy followed by salvage XRT who was noted to have gross hematuria over the last few months whose CT IVP was otherwise unremarkable. Discussed that his cystoscopy today was notable for a 3cm mass along his urinary trigone and that I was unable to visualize either ureteral orifice secondary to a small blood clot. Discussed that I am unsure if this mass represents urothelial cell carcinoma or recurrence of his prostate cancer, therefore, strongly recommend management via a transurethral resection of his bladder tumor. On arrival to the emergency department, the patient is well-appearing in no acute distress Exam is pertinent for: Edema mostly affecting the dorsal distal penis and less so the glans without skin changes that are consistent with cellulitis. Pt has no urinary retntion. Laboratories pertinent for: UA no infection Reached out to Dr. Bowens's office. Unfortunately there is no urologist available for consultation at this time On reassessment at 0930 the patient remains well. He is noted to have elevated blood pressure here, tells me he has taken his morning meds. He relates maybe elevated due to lack of sleep and stress recently. He is not having any symptoms of hypertensive urgency or emergency. Patient and I talked about probable etiologies of the edema around the penis such as local irritation from PAD he was using versus recent urological procedure. I expressed that I do not feel the symptoms are consistent with acute cellulitis although given no urologist available for consultation and given I am not able to follow up with this patient did offer Keflex to be filled in future if rash seems to be progressing. Return precautions discussed and provided prior to discharge Pertinent scoring tools used to guide clinical decision making, if applicable: Discharge Plan Departure Patient Disposition: Home Clinical Impression: Swelling of penis Activity Restrictions/Additional Instructions: Please call urology office to schedule follow up appointment at next available, ideally sometime next week. In the meantime monitor the area. Discontinue use of pads or other irritants to the genital area. I suspect that the swelling will improve over time. I did prescribe you an antibiotic to start taking if you feel that the rash is progressing over the next 24-48 hours although I do not anticipate that you will need it. You may always return to the emergency department for re-evaluation if you feel that your symptoms are worsening. Prescriptions: New cephalexin 500 mg capsule 500 mg PO BID 7 Days Qty: 14 0RF cephalexin 500 mg capsule 500 mg PO BID 5 Days Qty: 10 0RF No Action simvastatin 10 mg tablet 10 mg PO DAILY Qty: 90 3RF losartan-hydrochlorothiazide 100-25 mg tablet 0.5 tab PO BID Qty: 90 3RF abiraterone 250 mg tablet 1,000 mg PO DAILY amlodipine 5 mg tablet 5 mg PO DAILY Qty: 90 3RF sildenafil 100 mg tablet 100 mg PO DAILY PRN (Reason: sexual activity) Qty: 10 3RF Rx Instructions: administer 30 minutes to 4 hours before activity cholecalciferol (vitamin D3) 50 mcg (2,000 unit) capsule 50 mcg PO DAILY multivitamin Tablet 1 tab PO DAILY ascorbate calcium (vitamin C) 1 tab PO DAILY dexamethasone 0.5 mg tablet 0.5 mg PO BID Referrals: Brandon King MD [Primary Care Provider, Internal Medicine] Stand Alone Forms: Patient Portal/API
[2024-08-14 09:10] LABS: Urine Volume 10mL (spun)
[2024-08-14 09:11] LABS: Bacteria Urine None Seen; Culture Indicated Urine Cult Not Indicated; RBC Urine 1-5/HPF (0-5/HPF); Squamous Epithelial Cell Urine 0-1 /HPF (0-5/HPF); WBC Urine 0-1/HPF (0-5/HPF)
[2024-08-14 09:56] VITALS: BP 193/79; PULSE 88; RESP 18; O2SAT 99
== END 2024-08-14 10:14 | disposition home or self-care (01) ==
PROVIDERS: Emergency Provider Student in an Organized Health Care Education/Training Program; Family Provider Internal Medicine; PCP Internal Medicine
DX: N48.89 Other specified disorders of penis (principal)
CPT/HCPCS: 81003; 81015; 99282

== ENCOUNTER → 2024-08-24 13:38 | Outpatient (CLI) | payer MEDICARE, OTHER, SELFPAY ==
--- NOTE | 2024-08-24 13:39 | DI.RAD.S_ITS ---
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 FINDINGS: Lumbar Spine: Bone mineral density 1.464 g/cm2, T score 3.8, normal. Left Femoral Neck: Bone mineral density 1.092 g/cm2, T score 2.2. Left Hip: Bone mineral density 1.203 g/cm2, T score 2.1, normal. Fracture Risk Calculation (when applicable): 10-year fracture risk of a major osteoporotic fracture 5.8 percent and of a hip fracture 0.4 percent. (T score greater or equal to -1.0 to: NORMAL) (T score from -1.1 to -2.4: OSTEOPENIA) (T score less than or equal to -2.5: OSTEOPOROSIS) IMPRESSION: Normal bone mineralization Follow-up guidelines as follows: Osteoporosis: Consider a repeat DEXA and Vertebral Fracture Assessment (VFA) exam in 2 years or sooner if medically necessary, to reassess this patient's status. Osteopenia: Consider a repeat DEXA in 2-3 years to reassess this patient's status, or if there is a new clinical indication. Normal: Consider a repeat DEXA in 5 years or sooner, or if there is a new clinical indication. All treatment decisions require clinical judgment and consideration of individual patient factors, including patient preferences, comorbidities, previous drug use, risk factors not captured in the FRAX model (e.g., frailty, falls, vitamin D deficiency, increased bone turnover, interval significant decline in bone density ) and possible under- or over-estimation of fracture risk by FRAX. In addition, the NOF Guide recommends that FDA-approved medical therapies be considered in postmenopausal women and men age >= 50 years with a: * Hip or vertebral (clinical or morphometric) fracture * T-score of <=-2.5 at the spine or hip * Ten-year fracture probability by FRAX of >= 3% for hip fracture or >=20% for major osteoporotic fracture. Approved by: Fernandez Lamar M.D. on 08/25/2024 at 18:03
== END ==
PROVIDERS: Family Provider Internal Medicine; PCP Internal Medicine; Referring Provider Physician Assistant; Visit Provider Physician Assistant
DX: Z13.820 Encounter for screening for osteoporosis (principal); Z79.52 Long term (current) use of systemic steroids
CPT/HCPCS: 77080

== ENCOUNTER → 2024-09-05 09:47 | Outpatient (CLI) | payer MEDICARE, OTHER, SELFPAY ==
[2024-09-05 11:18] LABS: Prostate Specific Antigen < 0.064 ng/mL (0.10-4.00)
== END ==
PROVIDERS: PCP Internal Medicine; Referring Provider Physician Assistant; Visit Provider Physician Assistant
DX: C61 Malignant neoplasm of prostate (principal)
CPT/HCPCS: 36415; 84153; 84403

== ENCOUNTER → 2024-09-19 09:07 | Outpatient (CLI) | payer MEDICARE, OTHER, SELFPAY | LOC: LAB 09:08 | PROVIDERS: PCP Internal Medicine; Visit Provider Urology | DX: R39.9 Unspecified symptoms and signs involving the genitourinary system (principal) | CPT/HCPCS: 87086 ==

== ENCOUNTER 2024-09-26 09:48 | Day surgery (SDC) | payer MEDICARE, OTHER, SELFPAY ==
[2024-09-20 15:01] VITALS: BMI 30.5
[2024-09-26] VITALS (9 sets, daily range): BP systolic 127–182; BP diastolic 55–75; PULSE 46–74; RESP 12–23; TEMP 36.1–36.3; O2SAT 97–100; BMI 29.5
--- NOTE | 2024-09-26 | PATH_ITS ---
[facility] Accession Number: [id number] No. of containers..02 Tissue . 01 Material submitted: . PART A: body - DEEP MARGINS PART B: bladder - BLADDER MASS . 01 Diagnosis: A. DEEP MARGINS, BIOPSY: Urothelial carcinoma, high grade, invading into the muscularis propria, please see microscopic description. Negative for lymphovascular invasion. . B. URINARY BLADDER MASS, TRANSURETHRAL BLADDER TUMOR RESECTION: Urothelial carcinoma, high grade, invading into the subepithelial connective tissue/lamina propria, please see microscopic description. Previous biopsy changes present. Muscularis propria not present. Negative for definite lymphovascular invasion. Urothelial carcinoma in situ focally present. MRV 10/05/2024 1707 Local . 01 Comment: As part of ongoing quality control assistant, this case is also reviewed by Dr. Griselda Hoyt, who agrees with the interpretation. . 01 Electronically signed: . Skip Croft MD, Pathologist NPI- [id number] . 01 Gross description: . Part A: DEEP MARGINS: Received in formalin are 3 fragment(s) of toussaint, soft tissue measuring 0.8 x 0.4 x 0.3 cm to 1.2 x 0.4 x 0.3 cm submitted entirely in 1 cassette(s) Part B: BLADDER MASS: Received in formalin are 3 fragment(s) of tousasint, soft tissue measuring 0.4 x 0.2 x 0.2 cm to 0.9 x 0.3 x 0.2 cm submitted entirely in 1 cassette(s) /CHEY 10/02/2024 2220 Local . 01 Microscopic: . A, B. The patient has history of bladder and prostate cancer, therefore, immunostains are performed to support urothelial origin (and exclude prostatic origin) with the following results: . GATA3 (block A1 and B1): Tumor cells strong uniform positive; this result supports urothelial origin. . PSA (block A1 and B1): Tumor cells negative; this result argues against prostatic origin. . Smooth muscle actin (block A1): Positive on the thick smooth muscle fibers, infiltrated by nests of high-grade urothelial carcinoma. . The above immunohistochemical results along with the morphology support the diagnoses. . . * This test was developed and the performance characteristics were validated by [facility]. It has not been cleared or approved by the U.S. Food and Drug Administration. . 01 Pathologist provided ICD-10: C67.9 . 01 CPT . 919214, 371571, H92825, S54216 Specimen Comment: A courtesy copy of this report has been sent to [facility] Pathology Performed at: [address] [id number] MD Hermann Arzola MD Phone: [phone]
[2024-09-26] MEDS: LACTATED RINGERS 1,000 ML 42 ML IV (10:32)
[2024-09-26] MEDS: FAMOTIDINE 20 MG/2 ML VIAL IV (10:32)
[2024-09-26] MEDS: ACETAMINOPHEN IV 1,000 MG/100 ML VIAL 400 MG IV (10:32)
--- NOTE | 2024-09-26 12:36 | PM.HP.IH.1 ---
History of Present Illness History of Present Illness Date Patient Seen: 09/26/24 Time Patient Seen: 12:36 Chief complaint: [facility] Narrative: 74 y/o M returns to OR to discuss his prostate cancer and bladder cancer. Briefly, he has a h/o biochemically recurrent prostate cancer s/p an open radical prostatectomy in 2000 followed by salvage XRT in 2002. He has been treated with intermittent ADT for extensive periods in the past. He was also treated with multiple rounds of CyberKnife therapy, most recently to the right paratracheal nodes and right iliac crest in 2017. He is currently treated with continuous ADT in addition to Abiraterone and Dexamethasone with [facility] in [place], [place]. Review of his PSA's: < 0.064 (07/23, 06/23), 0.176 (05/23), 0.277 (04/25), 0.397 (03/25), 0.552 (02/21), 1.17 (01/22), 0.864 (12/22), 0.76 (11/22), 0.698 (10/22), 0.456 (09/21). Regarding his bladder cancer, he admitted to intermittent red urine and passage of blood clots over the last few months. This has been episodic in nature and will last for a few days at a time before it spontaneously resolves. He had a CT IVP performed in June of 2024 that was otherwise unremarkable. His office cystoscopy in July of 2024 was notable for a 3cm mass along his urinary trigone at the 7 o'clock position. He underwent a TURBT on 08 August 2024. His pathology was notable for HG T1 urothelial cell carcinoma, muscular propria was not present. His pathology results were discussed with him as well as the need for a repeat TURBT to obtain muscular propria. [facility] Medical History HTN (hypertension) Urothelial carcinoma of bladder Asymptomatic microscopic hematuria Secondhand smoke exposure History of tobacco use History of immunotherapy History of radiation therapy Gross hematuria Hx of adenomatous colonic polyps Essential hypertension Malignant neoplasm of prostate (09/27/00) Surgical History Hx of cystoscopy (08/08/24) Hx of colonoscopy (12/16/23) S/P laminectomy with spinal fusion (~04/2019) History of prostatectomy Social History household members: spouse Smoking Status: Former smoker alcohol intake: current Meds Home Medications and Allergies Home Medications ?Medication ?Instructions ?Recorded ?Confirmed ?Type sildenafil 100 mg tablet 100 mg PO DAILY PRN sexual 07/14/19 09/26/24 Rx activity #10 tabs abiraterone 250 mg tablet 1,000 mg PO DAILY 07/07/22 09/26/24 History ascorbate calcium (vitamin C) 1 tab PO DAILY 07/13/23 09/26/24 History cholecalciferol (vitamin D3) 50 50 mcg PO DAILY 07/13/23 09/26/24 History mcg (2,000 unit) capsule multivitamin 1 tab PO DAILY 07/13/23 09/26/24 History simvastatin 10 mg tablet 10 mg PO DAILY #90 tabs 01/10/24 09/26/24 Rx dexamethasone 0.5 mg tablet 0.5 mg PO BID 01/13/24 09/26/24 History losartan 100 0.5 tab PO BID #90 tabs 04/05/24 09/26/24 Rx mg-hydrochlorothiazide 25 mg tablet amlodipine 5 mg tablet 5 mg PO DAILY #90 tabs 07/13/24 09/26/24 Rx lorazepam 1 mg tablet 1 mg PO BEDTIME PRN sleep #30 tabs 08/29/24 09/26/24 Rx levofloxacin 500 mg tablet 500 mg PO DAILY #7 tabs 09/21/24 09/26/24 Rx Allergies Allergy/AdvReac Type Severity Reaction Status Date / Time No Known Drug Allergies Allergy Unknown Verified 08/29/24 10:47 Review of Systems Review of Systems Narrative: CONSTITUTIONAL: Denies weight loss, fevers, chills. HEENT: Denies change in vision, hearing. RESP: Denies SOB, cough. CV: Denies palpations, CP. GI: Denies abdominal pain, nausea, vomiting, diarrhea. : Denies dysuria, hematuria, inability to void. MSK: Denies myalgia, joint pain. SKIN: Denies rash, pruritus. NEURO: Denies headache, syncope. PSYCH: Denies recent change in mood, anxiety, depression. Exam Vital Signs (past 8 hours): - 09/26/24 10:50 Temperature 97.1 F L Pulse Rate 63 Respiratory Rate 16 Blood Pressure 178/62 H Pulse Oximetry 99 Oxygen Delivery Method Room Air Oxygen Delivery Method Room Air Narrative Exam Narrative: GEN: Alert and oriented X3. No acute distress. Well-nourished. EYES: PERRLA, EOMI. HENT: Moist mucus membranes, no scleral icterus, normal neck ROM. RESP: Unlabored breathing, equal rise and fall of chest bilaterally, no cyanosis appreciated. CV: No peripheral edema, unremarkable heart rate. ABD: Soft, non-tender, non-distended, no palpable masses. EXT: No edema, clubbing or cyanosis. SKIN: No rashes or lesions. NEURO: No focal neurologic deficits, CN II-XII grossly intact. PSYCH: Cooperative, appropriate mood and affect. Assessment & Plan Assessment and plan (1) Malignant neoplasm of prostate: Problem details: 74 y/o M noted to have a h/o biochemically recurrent prostate cancer s/p an open radical prostatectomy in 2000 followed by salvage XRT in 2002. He has been treated with intermittent ADT for extensive periods in the past. He was also treated with multiple rounds of CyberKnife therapy, most recently to the right paratracheal nodes and right iliac crest in 2018. He is currently treated with continuous ADT in addition to Abiraterone and Dexamethasone with [facility] in [place], [place]. He will continue his care with them for his prostate cancer management. 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 This has been episodic in nature and will last for a few days at a time before it spontaneously resolves. He had a CT IVP performed in June of 2024 that was otherwise unremarkable. His office cystoscopy in July of 2024 was notable for a 3cm mass along his urinary trigone at the 7 o'clock position. He underwent a TURBT on 08 August 2024. His pathology was notable for HG T1 urothelial cell carcinoma, muscular propria was not present. His pathology results were discussed with him as well as the need for a repeat TURBT to obtain muscular propria. Discussed risks of the procedure to include but not limited to pain, bleeding, infection, injury to urethra/prostate/bladder/ureteral orifice, need for a ureteral stent, prolonged catheterization, and possible open repair of ureteral and/or bladder injury. He indicated understanding and signed inform consent today. Time-Based Coding :: [TOTAL MINUTES] spent with patient and on the chart (including review of chart, obtaining history, exam, reviewing outside data, placing orders, documenting exam and treatment plan, and counseling patient) on [DATE]. PROFEE [place] Department Manager Document charge(s): Yes Charge Codes Inpatient/observation care including admit and discharge same day: [id number]
[2024-09-26] MEDS: levoFLOXacin 500 MG/100 ML PIGGYBACK 100 MG IV (13:05)
--- NOTE | 2024-09-26 13:20 | SUR.OPER ---
Lithotomy on padded OR bed, head on pillow, arms secured on padded arm boards at <90 degrees abduction. Legs secured in padded yellow fins stirrups.
--- NOTE | 2024-09-26 13:59 | PM.OP.1 ---
Operative Date/Time/Diagnoses Date of procedure: 09/26/24 Time of procedure: 13:30 Pre-op diagnosis: Bladder cancer Post-op diagnosis: same Procedure & Clinicians Procedure: Cystoscopy Transurethral resection of bladder tumor Same procedure(s) as scheduled: Yes Indications: Regarding his bladder cancer, he admitted to intermittent red urine and passage of blood clots over the last few months. This has been episodic in nature and will last for a few days at a time before it spontaneously resolves. He had a CT IVP performed in June of 2024 that was otherwise unremarkable. His office cystoscopy in July of 2024 was notable for a 3cm mass along his urinary trigone at the 7 o'clock position. He underwent a TURBT on 08 August 2024. His pathology was notable for HG T1 urothelial cell carcinoma, muscular propria was not present. His pathology results were discussed with him as well as the need for a repeat TURBT to obtain muscular propria. Discussed risks of the procedure to include but not limited to pain, bleeding, infection, injury to urethra/prostate/bladder/ureteral orifice, need for a ureteral stent, prolonged catheterization, and possible open repair of ureteral and/or bladder injury. He indicated understanding and signed inform consent today. Surgeon: Allen Bowens Click Yes if Unassisted: Yes Anesthesia Type: General Operative Notes Findings: Resection site at 7 o'clock on bladder trigone, not involving left ureteral orifice Closure Type: not applicable Specimen(s): other (bladder mass, deep margin) Applied: catheter Estimated Blood Loss (mL): 2 Blood products transfused: none Procedure in detail: Patient was identified in the preoperative holding area and consent confirmed. He was then brought to the operating room where general anesthesia was induced. He was then placed in the low lithotomy position. He was then prepped and draped in the usual sterile fashion. A surgical timeout was conducted and all were in agreement. Access to the bladder was obtained via a 21Fr cystoscope (he was noted to have a surgically absent prostate). Complete cystoscopy was then performed using a 30 and 70 degree lens. His previous resection site was located at the 7 o'clock position on his urinary trigone and not involving his left ureteral orifice. Bilateral ureteral orifices were visualized and noted to be orthotopic in nature. No other concerning lesions were appreciated. The cystoscope was then removed and his urethral meatus was serially dilated using [place] sounds from 22Fr to 30Fr. The 26Fr resectoscope with visual obturator was then advanced through his urethra and into his bladder. The working element with Gyrus loop was then assembled and passed through the resectoscope and into the bladder. The previous resection site was resected again, making sure to take a deep specimen. The resection bed was then fulgurated. All bladder specimens were then manually evacuated from the bladder using the resectoscope. Hemostasis was evaluated and noted to be excellent at case end. An 18Fr will was then inserted into the bladder at case end, 10cc of sterile water was used for balloon insufflation. Anesthesia was reversed, he was extubated in the OR and transferred to the PACU in stable condition for recovery. Complications: none Post-operative Condition: stable Disposition: PACU Plan for aftercare: Discharge home from PACU. Will return to Urology clinic on 28 September 2024 to have his will catheter removed.
--- NOTE | 2024-09-26 15:42 | SUR.PHASEII ---
Discharged patient in stable condition with written copy of all instructions. Patient undertands how to care for his will catheter at home. All belongings returned to patient including wedding band, eye glasses and ID cards. Home with in stable condition.
== END 2024-09-26 15:44 | disposition home or self-care (01) ==
PROVIDERS: PCP Internal Medicine; Referring Provider Urology; Visit Provider Urology
PROC: 0TBB8ZZ Excision of Bladder, Via Natural or Artificial Opening Endoscopic (ICD-10-PCS; CPT 52235; principal; 2024-09-26 11:30)
DX: C67.9 Malignant neoplasm of bladder, unspecified (principal); Z85.46 Personal history of malignant neoplasm of prostate
CPT/HCPCS: 52235; J0131; J1100; J1171; J1956; J2405; J2704; J3010; J3490

== ENCOUNTER → 2024-10-11 10:10 | Outpatient (CLI) | payer MEDICARE, OTHER, SELFPAY ==
[2024-10-11 11:53] LABS: Alanine Aminotransferase 22 IU/L (<50); Albumin 3.9 g/dL (3.5-5.0); Albumin Globulin Ratio 1.6 (1.0-2.8); Alkaline Phosphatase 59 U/L (38-126); Blood Urea Nitrogen 24 mg/dL (9-20); Calcium 9.0 mg/dL (8.4-10.2); Carbon Dioxide 29 mmol/L (22-32); Chloride 98 mmol/L (98-107); Cholesterol 211 mg/dL (140-199); Estimated Glomerular Filt Rate > 60 mL/min (>60); Globulin 2.4 g/dL (1.7-4.1); Glucose 94 mg/dL (70-99); HDL Cholesterol 71 mg/dL (40-60); HEMOLYSIS < 15 (0-50); Potassium 3.7 mmol/L (3.4-5.1); Sodium 133 mmol/L (137-145); Total Protein 6.3 g/dL (6.3-8.2); Triglycerides 170 mg/dL (35-150)
== END ==
PROVIDERS: PCP Internal Medicine; Referring Provider Physician Assistant; Visit Provider Physician Assistant
DX: I10 Essential (primary) hypertension (principal); C61 Malignant neoplasm of prostate; E78.2 Mixed hyperlipidemia
CPT/HCPCS: 36415; 80053; 80061

== ENCOUNTER → 2024-11-01 13:23 | Outpatient (CLI) | payer MEDICARE, OTHER, SELFPAY ==
--- NOTE | 2024-11-01 13:25 | DI.CT.S_ITS ---
PROCEDURE: CT CHEST W CON INDICATIONS: malignant neoplasm of urinary bladder TECHNIQUE: After the administration of intravenous contrast, 5 mm thick sections acquired from the pulmonary apices to the posterior costophrenic angles. 1 mm axial lung, 5 mm thick coronal and sagittal reformats and 7 mm axial MIP were acquired. For radiation dose reduction, the following was used: automated exposure control, adjustment of mA and/or kV according to patient size. COMPARISON: [facility], CT, CT ABDOMEN PELVIS WO/W CON, 06/29/2024, 9:16. [facility], CT, CT KIDNEY URETER BLADDER (KUB), 05/25/2024, 8:15. FINDINGS: Image quality: Diagnostic. Lungs and Pleura: Central and peripheral airways are normal without bronchial wall thickening or bronchiectasis. There are two juxta fissural nodules anterolateral right middle lobe consistent with lymph nodes. There are staple lines in the anterior left upper lobe, lingula, and lateral left lower lobe. 3 mm solid nodule laterally in the subpleural left lower lobe, . No acute ground-glass opacities or parenchymal consolidations.. No pleural effusions or pleural calcifications. Lower Neck: No enlarged lymph nodes. Thyroid: Normal CT appearance. Axillae: No enlarged lymph nodes. Chest Wall: No suspicious chest wall lesions. Bones: No suspicious bone lesion. Degenerative osteophytosis in the spine. Thoracic Vessels: The aorta and pulmonary arteries demonstrate normal size. Moderate aortic calcification. Mediastinum and Isis: No enlarged lymph nodes. Heart: Heart size is normal. No pericardial effusion. Heavy coronary artery calcification. Esophagus: No wall thickening. No hiatal hernia. Upper Abdomen: Visualized upper abdomen solid organs and bowel loops appear normal. IMPRESSION: Benign-appearing left lateral lobe solid nodule and two juxta fissural lymph nodes in the right lung. No suspicious lung mass or adenopathy to suggest metastatic disease in the chest. Heavy coronary artery calcification. Dictated by: Catherine Bedolla M.D. on 11/01/2024 at 15:11 Approved by: Catherine Bedolla M.D. on 11/01/2024 at 15:18
== END ==
PROVIDERS: PCP Internal Medicine; Referring Provider Internal Medicine; Visit Provider Urology
DX: C67.9 Malignant neoplasm of bladder, unspecified (principal); R91.1 Solitary pulmonary nodule; I25.10 Atherosclerotic heart disease of native coronary artery without angina pectoris
CPT/HCPCS: 71260

== ENCOUNTER → 2024-11-11 10:18 | Outpatient (CLI) | payer MEDICARE, OTHER, SELFPAY ==
[2024-11-11 11:11] LABS: Add Manual Diff / Slide Review NO; Hematocrit 33.5 % (41-53); Hemoglobin 11.8 g/dL (13.5-17.5); Lymphocytes Absolute Auto 2200 /uL (1100-4500); Mean Corpuscular HGB Conc 35.1 % (30-36); Mean Corpuscular Hemoglobin 33.7 PG (26-34); Mean Corpuscular Volume 95.9 fL (80-100); Platelet Count 198 X10^3/uL (150-400)
[2024-11-11 11:27] LABS: Alanine Aminotransferase 24 IU/L (<50); Albumin 3.9 g/dL (3.5-5.0); Albumin Globulin Ratio 1.6 (1.0-2.8); Alkaline Phosphatase 59 U/L (38-126); Blood Urea Nitrogen 15 mg/dL (9-20); Calcium 9.1 mg/dL (8.4-10.2); Carbon Dioxide 28 mmol/L (22-32); Chloride 99 mmol/L (98-107); Estimated Glomerular Filt Rate > 60 mL/min (>60); Globulin 2.4 g/dL (1.7-4.1); Glucose 99 mg/dL (70-99); HEMOLYSIS < 15 (0-50); Potassium 3.5 mmol/L (3.4-5.1); Sodium 133 mmol/L (137-145); Total Protein 6.3 g/dL (6.3-8.2)
[2024-11-11 11:57] LABS: Prostate Specific Antigen < 0.064 ng/mL (0.10-4.00)
== END ==
PROVIDERS: PCP Internal Medicine; Referring Provider Physician Assistant; Visit Provider Physician Assistant
DX: C61 Malignant neoplasm of prostate (principal)
CPT/HCPCS: 36415; 80053; 84153; 84403; 85025

== ENCOUNTER → 2024-11-23 13:55 | Outpatient (CLI) | payer MEDICARE, OTHER, SELFPAY ==
[2024-11-23 15:09] LABS: Hematocrit 30.2 % (41-53); Hemoglobin 10.6 g/dL (13.5-17.5); Mean Corpuscular HGB Conc 35.2 % (30-36); Mean Corpuscular Hemoglobin 34.4 PG (26-34); Mean Corpuscular Volume 97.7 fL (80-100); Platelet Count 137 X10^3/uL (150-400)
[2024-11-23 15:10] LABS: Alanine Aminotransferase 23 IU/L (<50); Albumin 3.8 g/dL (3.5-5.0); Albumin Globulin Ratio 1.6 (1.0-2.8); Alkaline Phosphatase 93 U/L (38-126); Blood Urea Nitrogen 23 mg/dL (9-20); Calcium 8.8 mg/dL (8.4-10.2); Carbon Dioxide 28 mmol/L (22-32); Chloride 99 mmol/L (98-107); Estimated Glomerular Filt Rate > 60 mL/min (>60); Globulin 2.4 g/dL (1.7-4.1); Glucose 105 mg/dL (70-99); HEMOLYSIS < 15 (0-50); Potassium 3.8 mmol/L (3.4-5.1); Sodium 134 mmol/L (137-145); Total Protein 6.2 g/dL (6.3-8.2)
[2024-11-23 15:12] LABS: Add Manual Diff / Slide Review YES
[2024-11-23 15:31] LABS: Band Neutrophils Percent 3.0 % (3-7); Eosinophils Percent Manual 3.0 % (2-4); Lymphocytes Percent Manual 46.0 % (25-45); Monocytes Percent Manual 8.0 % (2-11); Neutrophils Absolute Manual 1892 /uL (3000-5900); RBC Morphology Normal Morphology; Segmented Neutrophils Percent 40.0 % (38-70); Total Cells Counted 100
== END ==
LOC: LAB 13:56
PROVIDERS: PCP Internal Medicine; Referring Provider Internal Medicine Hematology & Oncology; Visit Provider Internal Medicine Hematology & Oncology
DX: C67.9 Malignant neoplasm of bladder, unspecified (principal)
CPT/HCPCS: 36415; 80053; 85007; 85025

== ENCOUNTER → 2024-12-06 12:47 | Outpatient (CLI) | payer MEDICARE, OTHER, SELFPAY ==
[2024-12-06 14:16] LABS: Hematocrit 27.5 % (41-53); Hemoglobin 10.0 g/dL (13.5-17.5); Mean Corpuscular HGB Conc 36.2 % (30-36); Mean Corpuscular Hemoglobin 35.2 PG (26-34); Mean Corpuscular Volume 97.3 fL (80-100); Platelet Count 232 X10^3/uL (150-400)
[2024-12-06 14:27] LABS: Alanine Aminotransferase 20 IU/L (<50); Albumin 3.8 g/dL (3.5-5.0); Albumin Globulin Ratio 1.7 (1.0-2.8); Alkaline Phosphatase 92 U/L (38-126); Blood Urea Nitrogen 22 mg/dL (9-20); Calcium 8.9 mg/dL (8.4-10.2); Carbon Dioxide 28 mmol/L (22-32); Chloride 99 mmol/L (98-107); Estimated Glomerular Filt Rate > 60 mL/min (>60); Globulin 2.3 g/dL (1.7-4.1); Glucose 102 mg/dL (70-99); HEMOLYSIS < 15 (0-50); Potassium 3.7 mmol/L (3.4-5.1); Sodium 135 mmol/L (137-145); Total Protein 6.1 g/dL (6.3-8.2)
[2024-12-06 14:45] LABS: Add Manual Diff / Slide Review YES
[2024-12-06 14:49] LABS: Band Neutrophils Percent 8.0 % (3-7); Basophils Percent Manual 1.0 % (0-1); Eosinophils Percent Manual 1.0 % (2-4); Lymphocytes Percent Manual 44.0 % (25-45); Monocytes Percent Manual 9.0 % (2-11); Neutrophils Absolute Manual 2430 /uL (3000-5900); Segmented Neutrophils Percent 37.0 % (38-70); Total Cells Counted 100
[2024-12-06 14:51] LABS: Anisocytosis 1+
== END ==
PROVIDERS: PCP Internal Medicine; Referring Provider Internal Medicine Hematology & Oncology; Visit Provider Internal Medicine Hematology & Oncology
DX: C67.9 Malignant neoplasm of bladder, unspecified (principal)
CPT/HCPCS: 36415; 80053; 85007; 85025

== ENCOUNTER → 2024-12-21 09:21 | Outpatient (CLI) | payer MEDICARE, OTHER, SELFPAY ==
[2024-12-21 11:07] LABS: Hematocrit 25.3 % (41-53); Hemoglobin 9.1 g/dL (13.5-17.5); Mean Corpuscular HGB Conc 35.9 % (30-36); Mean Corpuscular Hemoglobin 34.6 PG (26-34); Mean Corpuscular Volume 96.3 fL (80-100); Platelet Count 167 X10^3/uL (150-400)
[2024-12-21 11:08] LABS: Add Manual Diff / Slide Review YES
[2024-12-21 11:25] LABS: Alanine Aminotransferase 19 IU/L (<50); Albumin 4.0 g/dL (3.5-5.0); Albumin Globulin Ratio 1.7 (1.0-2.8); Alkaline Phosphatase 95 U/L (38-126); Blood Urea Nitrogen 24 mg/dL (9-20); Calcium 8.9 mg/dL (8.4-10.2); Carbon Dioxide 28 mmol/L (22-32); Chloride 95 mmol/L (98-107); Estimated Glomerular Filt Rate > 60 mL/min (>60); Globulin 2.3 g/dL (1.7-4.1); Glucose 117 mg/dL (70-99); HEMOLYSIS < 15 (0-50); Potassium 3.5 mmol/L (3.4-5.1); Sodium 132 mmol/L (137-145); Total Protein 6.3 g/dL (6.3-8.2)
[2024-12-21 11:32] LABS: Band Neutrophils Percent 1.0 % (3-7); Basophils Percent Manual 5.0 % (0-1); Lymphocytes Percent Manual 42.0 % (25-45); Monocytes Percent Manual 2.0 % (2-11); Neutrophils Absolute Manual 1683 /uL (3000-5900); Segmented Neutrophils Percent 50.0 % (38-70); Total Cells Counted 100
[2024-12-21 11:33] LABS: RBC Morphology Normal Morphology
[2024-12-21 11:51] LABS: Prostate Specific Antigen < 0.064 ng/mL (0.10-4.00)
== END ==
PROVIDERS: PCP Internal Medicine; Referring Provider Internal Medicine Hematology & Oncology; Visit Provider Internal Medicine Hematology & Oncology
DX: C61 Malignant neoplasm of prostate (principal); C67.9 Malignant neoplasm of bladder, unspecified
CPT/HCPCS: 36415; 80053; 84153; 84402; 85007; 85025

== ENCOUNTER → 2025-01-04 11:27 | Outpatient (CLI) | payer MEDICARE, OTHER, SELFPAY ==
[2025-01-04 12:13] LABS: Hemoglobin 7.2 g/dL (13.5-17.5); Mean Corpuscular HGB Conc 35.8 % (30-36); Mean Corpuscular Hemoglobin 34.9 PG (26-34); Mean Corpuscular Volume 97.5 fL (80-100); Platelet Count 144 X10^3/uL (150-400)
[2025-01-04 12:38] LABS: Alanine Aminotransferase 17 IU/L (<50); Albumin 3.6 g/dL (3.5-5.0); Albumin Globulin Ratio 1.6 (1.0-2.8); Alkaline Phosphatase 81 U/L (38-126); Blood Urea Nitrogen 21 mg/dL (9-20); Calcium 8.3 mg/dL (8.4-10.2); Carbon Dioxide 28 mmol/L (22-32); Chloride 90 mmol/L (98-107); Estimated Glomerular Filt Rate > 60 mL/min (>60); Globulin 2.3 g/dL (1.7-4.1); Glucose 109 mg/dL (70-99); HEMOLYSIS < 15 (0-50); Potassium 3.4 mmol/L (3.4-5.1); Sodium 122 mmol/L (137-145); Total Protein 5.9 g/dL (6.3-8.2)
[2025-01-04 12:44] LABS: Add Manual Diff / Slide Review YES
[2025-01-04 13:01] LABS: Band Neutrophils Percent 1.0 % (3-7); Monocytes Percent Manual 1.0 % (2-11); Neutrophils Absolute Manual 1530 /uL (3000-5900); Segmented Neutrophils Percent 50.0 % (38-70); Total Cells Counted 100
[2025-01-04 13:17] LABS: Basophils Percent Manual 1.0 % (0-1); Lymphocytes Percent Manual 47.0 % (25-45); Toxic Granulation Present; Toxic Vacuolation Present
[2025-01-04 13:19] LABS: RBC Morphology Normal Morphology
[2025-01-04 13:21] LABS: Hematocrit 20.1 % (41-53)
== END ==
PROVIDERS: PCP Internal Medicine; Referring Provider Internal Medicine Hematology & Oncology; Visit Provider Internal Medicine Hematology & Oncology
DX: C67.9 Malignant neoplasm of bladder, unspecified (principal)
CPT/HCPCS: 36415; 80053; 85007; 85025

== ENCOUNTER 2025-01-05 07:02 | Emergency (ER) | payer MEDICARE, OTHER, SELFPAY ==
[2025-01-05] VITALS (41 sets, daily range): BP systolic 135–200; BP diastolic 64–88; PULSE 68–87; RESP 10–23; TEMP 36.6–37.1; O2SAT 94–100; BMI 29.5
--- NOTE | 2025-01-05 07:20 | ED_ITS ---
HPI - Recheck/Abnormal Lab/Rx
--- NOTE | 2025-01-05 07:20 | ED.RECABL ---
HPI - Recheck/Abnormal Lab/Rx General Chief Complaint: Recheck/Abnormal Lab/Rx Stated Complaint: sent from to get blood Transfusion Time Seen by Provider: 01/05/25 07:14 Source: patient Mode of arrival: Ambulatory History of Present Illness HPI narrative: 74-year-old gentleman history of bladder cancer having received 4 rounds of chemotherapy normally has blood work done a week and a half after each treatment found to a have a hemoglobin 7.2 told to come to the ER to get blood transfusion. He is feeling weak and fatigued but otherwise has no shortness of breath, lightheadedness, dizziness, chest pain, fever, chill, body aches, vomiting, diarrhea. Other than what is stated 14 point review of system is negative Related Data Home Medications ?Medication ?Instructions ?Recorded ?Confirmed abiraterone 250 mg tablet 1,000 mg PO DAILY 07/07/22 12/21/24 ascorbate calcium (vitamin C) 1 tab PO DAILY 07/13/23 12/21/24 cholecalciferol (vitamin D3) 50 50 mcg PO DAILY 07/13/23 12/21/24 mcg (2,000 unit) capsule multivitamin 1 tab PO DAILY 07/13/23 12/21/24 dexamethasone 0.5 mg tablet 0.5 mg PO BID 01/13/24 12/21/24 Previous Rx's ?Medication ?Instructions ?Recorded sildenafil 100 mg tablet 100 mg PO DAILY PRN sexual 07/14/19 activity #10 tabs simvastatin 10 mg tablet 10 mg PO DAILY #90 tabs 01/10/24 losartan 100 0.5 tab PO BID #90 tabs 04/05/24 mg-hydrochlorothiazide 25 mg tablet amlodipine 5 mg tablet 5 mg PO DAILY #90 tabs 07/13/24 lorazepam 1 mg tablet 1 mg PO BEDTIME PRN sleep #30 tabs 08/29/24 levofloxacin 500 mg tablet 500 mg PO DAILY #7 tabs 09/21/24 Allergies Allergy/AdvReac Type Severity Reaction Status Date / Time No Known Drug Allergies Allergy Unknown Verified 01/05/25 07:09 Review of Systems Review of Systems ROS Unobtainable: All systems reviewed & are unremarkable except as noted in HPI and below Patient History Medical History HTN (hypertension) Urothelial carcinoma of bladder Asymptomatic microscopic hematuria Secondhand smoke exposure History of tobacco use History of immunotherapy History of radiation therapy Gross hematuria Hx of adenomatous colonic polyps Essential hypertension Malignant neoplasm of prostate (09/27/00) Surgical History Hx of cystoscopy (08/08/24) Hx of colonoscopy (12/16/23) S/P laminectomy with spinal fusion (~04/2019) History of prostatectomy Social History household members: spouse Smoking Status: Former smoker alcohol intake: current Smoking Status: Former smoker tobacco type: cigarettes alcohol intake frequency: 0-2 drinks per day Alcohol type: beer Exam Narrative Exam Narrative: GENERAL: [74] year old patient appears stated age. Well-developed patient, in mild distress. HEAD: Atraumatic. Normocephalic. EYES: Pupils equal round and reactive. Extraocular motions intact. No scleral icterus. No injection or drainage. ENT: Nose without bleeding, purulent drainage. Throat without erythema, tonsillar hypertrophy or exudate. Airway patent. NECK: Trachea midline. Non tender CARDIOVASCULAR: Regular rate and rhythm without murmurs, gallops, or rubs. RESPIRATORY: Clear to auscultation. Breath sounds equal bilaterally. No wheezes, rales, or rhonchi. GASTROINTESTINAL: Abdomen soft, non-tender, nondistended. EXTREMITIES: No edema or joint tenderness. BACK: Nontender without deformity or crepitance. No flank tenderness. NEURO: AOx3. SKIN: No rash or erythema of visible areas Initial Vital Signs Initial Vital Signs: Vital Signs Temperature 98.2 F 01/05/25 07:09 Pulse Rate 87 01/05/25 07:09 Respiratory Rate 16 01/05/25 07:09 Blood Pressure 135/64 01/05/25 07:09 Pulse Oximetry 100 01/05/25 07:09 Oxygen Delivery Method Room Air 01/05/25 07:09 Course Orders Ordered: ED Orders 01/05/25 07:50 CBC Auto Diff [Complete Blood Count AUTO DIFF] Stat CMP [Comprehensive Metabolic Panel] Stat PT [Prothrombin Time INR] Stat Type and Screen Stat transfuse [Packed Cells] Stat 01/05/25 14:23 Hemoglobin and Hematocrit Stat Vital Signs Vital signs: Vital Signs - 8 hr 01/05/25 07:09 01/05/25 08:00 01/05/25 08:00 Temperature 98.2 F Pulse Rate 87 71 Respiratory Rate 16 13 Blood Pressure 135/64 179/77 H Pulse Oximetry 100 95 Oxygen Delivery Method Room Air 01/05/25 08:30 01/05/25 08:30 01/05/25 09:00 Temperature Pulse Rate 71 71 Respiratory Rate 10 L 14 Blood Pressure 165/82 H Pulse Oximetry 94 97 Oxygen Delivery Method 01/05/25 09:00 01/05/25 09:30 01/05/25 09:30 Temperature Pulse Rate 69 Respiratory Rate 11 L Blood Pressure 173/72 H 172/85 H Pulse Oximetry 95 Oxygen Delivery Method 01/05/25 10:00 01/05/25 10:00 01/05/25 10:05 Temperature Pulse Rate 73 Respiratory Rate 20 Blood Pressure 177/75 H 171/74 H Pulse Oximetry 97 Oxygen Delivery Method 01/05/25 10:05 01/05/25 10:10 01/05/25 10:10 Temperature Pulse Rate 72 72 Respiratory Rate 16 23 Blood Pressure 154/69 H Pulse Oximetry 97 97 Oxygen Delivery Method 01/05/25 10:11 01/05/25 10:16 01/05/25 10:16 Temperature 98.8 F Pulse Rate 78 74 Respiratory Rate 16 23 Blood Pressure 154/69 H 183/74 H Pulse Oximetry 94 Oxygen Delivery Method 01/05/25 10:20 01/05/25 10:20 01/05/25 10:25 Temperature Pulse Rate 71 73 Respiratory Rate 20 20 Blood Pressure 168/72 H Pulse Oximetry 97 96 Oxygen Delivery Method 01/05/25 10:25 01/05/25 10:30 01/05/25 10:30 Temperature Pulse Rate 73 Respiratory Rate 16 Blood Pressure 169/73 H 169/74 H Pulse Oximetry 97 Oxygen Delivery Method 01/05/25 10:34 01/05/25 10:35 01/05/25 10:35 Temperature 98.8 F Pulse Rate 74 73 Respiratory Rate 18 15 Blood Pressure 169/75 H 169/75 H Pulse Oximetry 97 Oxygen Delivery Method 01/05/25 10:40 01/05/25 10:40 01/05/25 10:45 Temperature Pulse Rate 75 Respiratory Rate 19 Blood Pressure 171/73 H 169/75 H Pulse Oximetry 96 Oxygen Delivery Method 01/05/25 10:45 01/05/25 10:50 01/05/25 10:50 Temperature Pulse Rate 79 72 Respiratory Rate 22 16 Blood Pressure 168/72 H Pulse Oximetry 99 98 Oxygen Delivery Method 01/05/25 10:55 01/05/25 10:55 01/05/25 11:00 Temperature Pulse Rate 69 71 Respiratory Rate 19 17 Blood Pressure 171/74 H Pulse Oximetry 97 96 Oxygen Delivery Method 01/05/25 11:00 01/05/25 11:05 01/05/25 11:05 Temperature Pulse Rate 70 Respiratory Rate 13 Blood Pressure 167/72 H 173/73 H Pulse Oximetry 96 Oxygen Delivery Method 01/05/25 11:11 01/05/25 11:11 01/05/25 11:15 Temperature Pulse Rate 70 Respiratory Rate 20 Blood Pressure 193/79 H 173/73 H Pulse Oximetry 97 Oxygen Delivery Method 01/05/25 11:15 01/05/25 11:21 01/05/25 11:21 Temperature Pulse Rate 75 68 Respiratory Rate 18 17 Blood Pressure 178/76 H Pulse Oximetry 98 99 Oxygen Delivery Method 01/05/25 11:25 01/05/25 11:26 01/05/25 11:26 Temperature 98.4 F Pulse Rate 69 68 Respiratory Rate 17 17 Blood Pressure 178/76 H 200/78 H Pulse Oximetry 99 Oxygen Delivery Method 01/05/25 11:30 01/05/25 11:30 01/05/25 12:00 Temperature Pulse Rate 71 75 Respiratory Rate 12 17 Blood Pressure 177/77 H Pulse Oximetry 98 96 Oxygen Delivery Method 01/05/25 12:00 01/05/25 12:30 01/05/25 12:30 Temperature 98.7 F Pulse Rate 72 Respiratory Rate 18 Blood Pressure 171/83 H 181/79 H 181/79 H Pulse Oximetry Oxygen Delivery Method 01/05/25 12:30 01/05/25 12:50 01/05/25 12:50 Temperature Pulse Rate 75 75 Respiratory Rate 14 14 Blood Pressure 166/70 H Pulse Oximetry 98 97 Oxygen Delivery Method 01/05/25 12:58 01/05/25 12:58 01/05/25 13:00 Temperature 98.7 F Pulse Rate 73 74 Respiratory Rate 17 18 Blood Pressure 188/77 H 188/77 H Pulse Oximetry 99 Oxygen Delivery Method 01/05/25 13:00 01/05/25 13:00 01/05/25 13:20 Temperature Pulse Rate 72 72 Respiratory Rate 12 15 Blood Pressure 163/71 H Pulse Oximetry 97 97 Oxygen Delivery Method 01/05/25 13:20 01/05/25 13:30 01/05/25 13:40 Temperature Pulse Rate 73 Respiratory Rate 19 Blood Pressure 170/88 H 172/80 H Pulse Oximetry 95 Oxygen Delivery Method 01/05/25 13:40 01/05/25 14:00 01/05/25 14:00 Temperature Pulse Rate 73 74 Respiratory Rate 11 L 14 Blood Pressure 182/77 H Pulse Oximetry 98 97 Oxygen Delivery Method 01/05/25 14:14 01/05/25 14:21 01/05/25 14:21 Temperature 97.9 F Pulse Rate 72 76 Respiratory Rate 19 20 Blood Pressure 182/77 H 157/68 H Pulse Oximetry 97 Oxygen Delivery Method MDM - Recheck/Abnormal Lab/Rx Lab Data 01/05/25 07:50 01/05/25 07:50 Labs: Lab Results 01/05/25 Range/Units 07:50 WBC 1.3 L* D (4.5-11.0) X10^3/uL RBC 1.96 L (4.5-5.9) X10^6/uL Hgb 6.7 L* (13.5-17.5) g/dL Hct 19.0 L* (41-53) % MCV 96.7 (80-100) fL MCH 34.3 H (26-34) PG MCHC 35.5 (30-36) % RDW 15.4 H (11.6-14.8) % Plt Count 114 L (150-400) X10^3/uL Neut % (Auto) 29.7 L (50-75) % Lymph % (Auto) 63.2 H (25-40) % [place] % (Auto) 3.5 (3-14) % Eos % (Auto) 2.6 (2-4) % Baso % (Auto) 1.0 (0-2) % Neut # (Auto) 400 L (1832-1987) /uL Lymph # (Auto) 800 L (7490-4346) /uL [place] # (Auto) 0 (0-900) /uL Eos # (Auto) 0 (0-450) /uL Baso # (Auto) 0 (0-100) /uL PT 10.2 (9.4-12.5) SECONDS INR 0.9 (0.9-1.3) Sodium 125 L (137-145) mmol/L Potassium 3.2 L (3.4-5.1) mmol/L Chloride 91 L (98-107) mmol/L Carbon Dioxide 29 (22-32) mmol/L BUN 20 (9-20) mg/dL Creatinine 0.87 (0.66-1.25) mg/dL Estimated GFR > 60 (>60) mL/min BUN/Creatinine Ratio 23.0 H (6-22) Glucose 97 (70-99) mg/dL Calcium 8.3 L (8.4-10.2) mg/dL Total Bilirubin 0.8 (0.2-1.3) mg/dL AST 22 (17-59) IU/L ALT 17 (<50) IU/L Alkaline Phosphatase 71 (38-126) U/L Total Protein 5.9 L (6.3-8.2) g/dL Albumin 3.5 (3.5-5.0) g/dL Globulin 2.4 (1.7-4.1) g/dL Albumin/Globulin Ratio 1.5 (1.0-2.8) Blood Type A Positive Antibody Screen Negative Crossmatch See Detail MDM Narrative Medical decision making narrative: All lab work, vital signs, nurse triage note, medication list, previous ER visits, and all imaging studies reviewed. WBC 1.3 hemoglobin 6.7 hematocrit 19 platelet 114. Sodium 125 potassium 3.2 chloride 91 CO2 29 BUN 20 creatinine 0.87. Patient given has some potassium chloride 40 mEq and transfused 2 units of PRBC. H&H in on repeat is Hg 9.4 and Hct 26.3. Have patient follow up with her specialist next scheduled appointment. Discharge Plan Departure Patient Disposition: Home Clinical Impression: Anemia Instructions: Anemia Activity Restrictions/Additional Instructions: Return with new or worsening symptoms. Please follow up with all your specialist MDs at your next scheduled appointment. Hg today after 2 units of PRBC came up to hg 9.4 and hct 26.3 Prescriptions: No Action simvastatin 10 mg tablet 10 mg PO DAILY Qty: 90 3RF losartan-hydrochlorothiazide 100-25 mg tablet 0.5 tab PO BID Qty: 90 3RF levofloxacin 500 mg tablet 500 mg PO DAILY Qty: 7 0RF abiraterone 250 mg tablet 1,000 mg PO DAILY amlodipine 5 mg tablet 5 mg PO DAILY Qty: 90 3RF lorazepam 1 mg tablet 1 mg PO BEDTIME PRN (Reason: sleep) Qty: 30 1RF sildenafil 100 mg tablet 100 mg PO DAILY PRN (Reason: sexual activity) Qty: 10 3RF Rx Instructions: administer 30 minutes to 4 hours before activity cholecalciferol (vitamin D3) 50 mcg (2,000 unit) capsule 50 mcg PO DAILY multivitamin Tablet 1 tab PO DAILY ascorbate calcium (vitamin C) 1 tab PO DAILY dexamethasone 0.5 mg tablet 0.5 mg PO BID Referrals: Brandon Knig MD [Primary Care Provider, Internal Medicine] Stand Alone Forms: Patient Portal/API
[2025-01-05 08:16] LABS: Add Manual Diff / Slide Review NO; Lymphocytes Absolute Auto 800 /uL (1100-4500); Mean Corpuscular HGB Conc 35.5 % (30-36); Mean Corpuscular Hemoglobin 34.3 PG (26-34); Mean Corpuscular Volume 96.7 fL (80-100); Platelet Count 114 X10^3/uL (150-400)
[2025-01-05 08:19] LABS: INR 0.9 (0.9-1.3); Prothrombin Time 10.2 SECONDS (9.4-12.5)
[2025-01-05 08:20] LABS: Hematocrit 19.0 % (41-53); Hemoglobin 6.7 g/dL (13.5-17.5)
[2025-01-05 08:24] LABS: Alanine Aminotransferase 17 IU/L (<50); Albumin 3.5 g/dL (3.5-5.0); Albumin Globulin Ratio 1.5 (1.0-2.8); Alkaline Phosphatase 71 U/L (38-126); Blood Urea Nitrogen 20 mg/dL (9-20); Calcium 8.3 mg/dL (8.4-10.2); Carbon Dioxide 29 mmol/L (22-32); Chloride 91 mmol/L (98-107); Estimated Glomerular Filt Rate > 60 mL/min (>60); Globulin 2.4 g/dL (1.7-4.1); Glucose 97 mg/dL (70-99); HEMOLYSIS < 15 (0-50); Potassium 3.2 mmol/L (3.4-5.1); Sodium 125 mmol/L (137-145); Total Protein 5.9 g/dL (6.3-8.2)
[2025-01-05 14:36] LABS: Hematocrit 26.3 % (41-53); Hemoglobin 9.4 g/dL (13.5-17.5)
[2025-01-05] MEDS: POTASSIUM CHLORIDE 20 MEQ/15 ML UDC 40 MEQ PO (14:52)
== END 2025-01-05 15:22 | disposition home or self-care (01) ==
PROVIDERS: Emergency Provider Family Medicine; PCP Internal Medicine
DX: D64.9 Anemia, unspecified (principal); Z85.51 Personal history of malignant neoplasm of bladder; Z92.21 Personal history of antineoplastic chemotherapy
CPT/HCPCS: 36415; 36430; 80053; 85014; 85018; 85025; 85610; 86850; 86900; 86901; 99284; P9016

== ENCOUNTER → 2025-01-09 10:48 | Outpatient (CLI) | payer MEDICARE, OTHER, SELFPAY ==
[2025-01-09 12:05] LABS: Add Manual Diff / Slide Review NO; Hematocrit 23.7 % (41-53); Hemoglobin 8.4 g/dL (13.5-17.5); Lymphocytes Absolute Auto 1700 /uL (1100-4500); Mean Corpuscular HGB Conc 35.3 % (30-36); Mean Corpuscular Hemoglobin 33.8 PG (26-34); Mean Corpuscular Volume 95.9 fL (80-100); Platelet Count 38 X10^3/uL (150-400)
[2025-01-09 12:44] LABS: Blood Urea Nitrogen 14 mg/dL (9-20); Calcium 8.8 mg/dL (8.4-10.2); Carbon Dioxide 27 mmol/L (22-32); Chloride 91 mmol/L (98-107); Estimated Glomerular Filt Rate > 60 mL/min (>60); Glucose 112 mg/dL (70-99); HEMOLYSIS < 15 (0-50); Potassium 3.1 mmol/L (3.4-5.1); Sodium 128 mmol/L (137-145)
== END ==
PROVIDERS: PCP Internal Medicine; Referring Provider Internal Medicine Hematology & Oncology; Visit Provider Internal Medicine Hematology & Oncology
DX: C67.9 Malignant neoplasm of bladder, unspecified (principal)
CPT/HCPCS: 36415; 80048; 85025